=== PATIENT | male | born 1955 | race Caucasian/White ===

== ENCOUNTER 2018-12-20 22:13 | Outpatient (CLI) | payer MEDICARE | END 2018-12-20 22:14 | disposition critical access hospital (66) | LOC: EMS 22:13 | PROVIDERS: ATTEND Surgery | DX: M79.651 Pain in right thigh (principal); S01.81XA Laceration without foreign body of other part of head, initial encounter; W01.0XXA Fall on same level from slipping, tripping and stumbling without subsequent striking against object, initial encounter; Y92.89 Other specified places as the place of occurrence of the external cause | CPT/HCPCS: A0425; A0429 ==

== ENCOUNTER 2018-12-20 22:43 | Inpatient (IN) | payer MEDICARE, OTHER ==
--- NOTE | 2018-12-20 23:26 | ED Physician Documentation ---
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 No: Weakness, Numbness, Tingling Contributing factors: No: Anticoagulated, Prior ortho surgery, Prosthetic joint, Work related Similar symptoms before: Has not had sx before Recently seen: Not recently seen - Additional information Additional information: patient was in wooded area earlier today when he tripped and fell. He had sudden onset right thigh pain and deformity. He also struck his head and sustained a facial laceration but denies LOC. He was alone and without means of communication (such as cell phone). He applied traction to his right leg until the thigh was straight (he describes "crunching" sound and sensation with this), and then crawled back to his vehicle and called 911. He says it took 2-3 hours to crawl back to his vehicle. Review of Systems Constitutional: reports: Reviewed and negative Eyes: reports: Reviewed and negative Ears: reports: Reviewed and negative Nose: reports: Reviewed and negative Throat: reports: Reviewed and negative Cardiac: reports: Reviewed and negative Respiratory: reports: Reviewed and negative GI: reports: Reviewed and negative : denies: Incontinent Skin: reports: Laceration (s) (left eyebrow) Musculoskeletal: reports: Extremity pain, Extremity swelling. denies: Neck pain, Back pain Neurologic: reports: Head injury. denies: Generalized weakness, Focal weakness, Numbness, Confused, Altered mental status, Headache, LOC PD PAST MEDICAL HISTORY - Past Medical History Past Medical History: No - Past Surgical History Past Surgical History: No - Present Medications Home Medications: Ambulatory Orders Medication Instructions Recorded Confirmed No Known Home Medications 12/21/18 12/21/18 - Allergies Allergies/Adverse Reactions: Allergies Allergy/AdvReac Type Severity Reaction Status Date / Time No Known Drug Allergies Allergy Verified 12/20/18 22:51 - Social History Does the pt smoke?: No Smoking Status: Never smoker Does the pt drink ETOH?: No Does the pt have substance abuse?: No - Immunizations Immunizations are current?: Yes - POLST Patient has POLST: No PD ED PE NORMAL - Vitals Vital signs reviewed: Yes - General General: Alert and oriented X 3, No acute distress (NAD at rest but obvious painful distress with any movement of RLE or palpation of right thigh), Well developed/nourished - HEENT HEENT: PERRL, EOMI, Moist mucous membranes - Neck Neck: Supple, no meningeal sign, No bony TTP - Cardiac Cardiac: RRR, No murmur, No gallop, No rub - Respiratory Respiratory: No respiratory distress, Clear bilaterally - Abdomen Abdomen: Soft, Non tender - Back Back: No spinal TTP - Derm Derm: Normal color, Warm and dry - Neuro Neuro: Alert and oriented X 3, tube balancer 2-12 intact, No motor deficit, No sensory deficit, Normal speech Eye Opening: Spontaneous Motor: Obeys Commands Verbal: Oriented GCS Score: 15 PD ED PE EXPANDED - HEENT HEENT Visual: 1 - laceration (stellate laceration, total length 2.5 cm. no bony tenderness) - Extremities Extremities: Tenderness, Limited ROM, Swelling, Right thigh, Pedal Pulses Present, Sensory intact, Vascular intact Results - Vitals Vitals: Vital Signs - 24 hr 12/20/18 12/21/18 22:51 00:44 Temperature 36.6 C Heart Rate 74 86 Respiratory 16 18 Rate Blood Pressure 157/91 H 128/94 H O2 Saturation 99 97 Oxygen O2 Source Room air - Labs Labs: Laboratory Tests 12/20/18 12/20/18 23:50 23:50 WBC 15.0 H RBC 4.82 Hgb 15.4 Hct 45.3 MCV 94.0 MCH 32.0 H MCHC 34.0 RDW 13.0 Plt Count 232 MPV 9.6 Neut # (Auto) 12.7 H Lymph # (Auto) 0.7 L Traverse # (Auto) 1.4 H Eos # (Auto) 0.1 Baso # (Auto) 0.1 Absolute Nucleated RBC 0.00 Nucleated RBC % 0.0 Sodium 142 Potassium 3.9 Chloride 106 Carbon Dioxide 23 Anion Gap 13.0 BUN 22 H Creatinine 1.1 Estimated GFR (MDRD) 67 L Glucose 115 H Calcium 9.1 - Rads (name of study) right femur xrays Radiology: Prelim report reviewed, See rad report Procedures - Laceration (location) Face left Length in cm: 2.5 Wound type: Stellate Neurovascular status: Sensory intact, Motor intact, Vascular intact Anesthesia: Lidocaine 1% Wound Preparation: Chlorhexadine, Irrigated copiously NS, Wound explored, To the base, FB identified (small particulate matter encountered and removed from wound) Skin layer closure: Nylon, Interrupted, Size #-0 - enter number (5-0) Other: Patient tolerated well, No complications, Neurovascular intact, Tetanus UTD Complexity: Simple PD MEDICAL DECISION MAKING - ED course Complexity details: reviewed results, re-evaluated patient, considered differential, d/w patient ED course: D/W Dr. Dillon, recommends admit to hospitalist service and orthopedic surgery can be consulted and evaluate patient in AM Departure - Departure Disposition: [facility] DC/Xfer Clinical Impression: Laceration Right femoral fracture Qualifiers: Encounter type: initial encounter Femur location: shaft Fracture type: closed Fracture morphology: comminuted Condition: Stable Discharge Date/Time: 12/21/18 02:35
[2018-12-20] MEDS ORDERED: HYDROmorphone 1 MG/ML CARPUJECT IVP STA (23:46)
[2018-12-21] MEDS ORDERED: LIDOCAINE 1% 2 ML VIAL SUBQ STA (00:21)
[2018-12-21 00:39] LABS: BASOPHILS # (AUTO) 0.1 10^3/uL (0.0-0.1); BASOPHILS % (AUTO) 0.3 %; EOSINOPHILS # (AUTO) 0.1 10^3/uL (0.0-0.7); EOSINOPHILS % (AUTO) 0.5 %; HGB - HEMOGLOBIN 15.4 g/dL (14.0-18.0); LYMPHOCYTES # (AUTO) 0.7 10^3/uL (1.5-3.5); LYMPHOCYTES % (AUTO) 4.9 %; MEAN PLATELET VOLUME 9.6 fL (7.4-11.4); MONOCYTES # (AUTO) 1.4 10^3/uL (0.0-1.0); MONOCYTES % (AUTO) 9.3 %; NEUTROPHILS # (AUTO) 12.7 10^3/uL (1.5-6.6); NEUTROPHILS % (AUTO) 84.6 %; PLT - PLATELET COUNT 232 10^3/uL (130-450); RED BLOOD COUNT 4.82 10^6/uL (4.70-6.10)
--- NOTE | 2018-12-21 00:44 | XRAY Report ---
Reason: fall, tenderness and pain of right thigh Procedure Date: 12/21/2018 Accession Number: [id number] / [id number] Procedure: XR - Femur 2V RT CPT Code: FULL RESULT: EXAM: RIGHT FEMUR RADIOGRAPHY EXAM DATE: 12/21/2018 12:36 AM. CLINICAL HISTORY: Fall, tenderness and pain of right thigh. COMPARISON: None. TECHNIQUE: 2 views. FINDINGS: Bones: Comminuted, foreshortened right proximal femoral shaft fracture, involving the lesser trochanter. Joints: Mild osteoarthritis. Soft Tissues: Proximal soft tissue swelling. IMPRESSION: Comminuted, foreshortened proximal femoral shaft fracture, involving the lesser trochanter. RADIA
[2018-12-21 00:52] LABS: CALCIUM 9.1 mg/dL (8.5-10.3); CREATININE 1.1 mg/dL (0.6-1.2)
[2018-12-21] MEDS ORDERED: HYDROmorphone 1 MG/ML CARPUJECT IVP PRN (01:23)
--- NOTE | 2018-12-21 01:55 | HISTORY & PHYSICAL EXAMINATION ---
Chief Complaint - Chief Complaint Chief Complaint: Right leg pain after fall History of Present Illness - Admitted From Admitted From:: Home - History Obtained From Records Reviewed: Yes History obtained from: Patient, ER Physician - History of Present Illness HPI Comment/Other: This is a 63 year old male with no significant past medical history who presents to the ER for right leg pain after a fall. [place] the [place] around 5pm when he began climbing. He then fell off from about 10 feet and landed on his back. He was carrying an axe and was worried it might hit him so while he was falling, his biggest concern was to get rid of the axe. He ended up scraping his head above his right eye. He attempted to get up but noticed that he had a significant amount of right leg pain near his up. He thought it may have been a muscle strain. He was outside of cell phone service and was a quarter mile away from his car so he had to drag himself on the ground to get out of the [place] so he has a few scraps over his arms and legs. He reports no headache, vision changes, chest pain, dyspnea, or numbness of the lower extremities. He just co mplains of right leg pain with movement. He reports that he is normally very active. He has no history of diabetes, CAD, CHF. He has no chest pain or dyspnea with activity. In the ER, he was found to have a comminuted proximal femoral shaft fracture involving the less trochanter. Ortho was contacted by the ER physician recommended admission for intervention. I did speak with the patient regarding code status and he would like to be a full code. History - Past Medical History Cardiovascular: reports: None Respiratory: reports: None Musculoskeletal: reports: None MRSA Hx?: No - Past Surgical History General: reports: Other (Jaw surgery as a child) - Family & Social History Family History Comment/Other: His father had multiple cardiac problems that he cannot recall. 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 He does not smoke. Rarely drinks alcohol. - Substance History Use: Uses substance without health or social issues: NONE - POLST Patient has POLST: No Meds/Allgy - Home Medications Home Medications: Ambulatory Orders Medication Instructions Recorded Confirmed No Known Home Medications 12/21/18 12/21/18 - Allergies Allergies/Adverse Reactions: Allergies Allergy/AdvReac Type Severity Reaction Status Date / Time No Known Drug Allergies Allergy Verified 12/20/18 22:51 Review of Systems - Constitutional Constitutional: denies: Fatigue, Fever, Chills, Weakness - Eyes Eyes: denies: Blurred vision - Cardiovascular Cariovascular: denies: Chest pain, Syncope, Exertional dyspnea, Decr. exercise tolerance - Respiratory Respiratory: denies: Cough, SOB at rest, SOB with exertion - Gastrointestinal Gastrointestinal: reports: Bloating. denies: Abdominal pain, Nausea, Vomiting - Genitourinary Genitourinary: denies: Dysuria, Frequency - Musculoskeletal Musculoskeletal: reports: Limited range of motion. denies: Muscle pain, Muscle weakness - Integumentary Integumentary: reports: Lesions. denies: Rash - Neurological Neurological: reports: Focal weakness. denies: General weakness, Headache, Dizziness - All Other Systems All Other Systems: reports: Reviewed and negative Prior Level of Functionality: Independent with ADL's. Exam - Vital Signs Reviewed Vital Signs: Yes Vital Signs: Vital Signs x48h Temp Pulse Resp BP Pulse Ox 12/21/18 00:44 86 18 128/94 H 97 12/20/18 22:51 36.6 C 74 16 157/91 H 99 - Physical Exam General Appearance: positive: No acute distress, Alert Eyes Bilateral: positive: Normal inspection ENT: positive: ENT inspection nml Neck: positive: Nml inspection Respiratory: positive: No respiratory distress. negative: Wheezes, Rales, Rhonchi Cardiovascular: positive: Regular rate & rhythm, No murmur. negative: Tachy cardia, Bradycardia, Systolic murmur, Diastolic murmur Peripheral Pulses: positive: 2+ Abdomen: positive: Non-tender, No distention. negative: Tenderness, Guarding, Rebound Skin: positive: Laceration (cm) (2cm laceration just superior and medial to the left eyebrow.), Other (Small abrasions noted over his arms and legs.) Extremities: positive: No pedal edema, Other (Tenderness to palpation over the right hip. +2 DP pulses. Able to move his foot and toes.). negative: Non- tender, Full ROM Neurologic/Psychiatric: positive: Oriented x3, Sensation nml. negative: Disoriented to person, Disoriented to place, Disoriented to time, Weakness Conclusion/Plan - Problem List (1) Right femoral fracture Conclusion/Plan: Secondary to fall from approximately 10 feet. X-ray revealed right comminuted proximal femoral shaft fracture involving the lesser trochanter. Will treat his pain with IV dilaudid. NPO for likely intervention today. SCD's for DVT prophylaxis and will start Lovenox postoperatively. Orthopedics consult. PT/OT consult postoperatively. Qualifiers: Encounter type: initial encounter Femur location: shaft Fracture type: closed Fracture morphology: comminuted (2) Preop examination Conclusion/Plan: His Rosales perioperative cardiac risk score is 0.02% for a perioperative cardiac event. His functional status >4 MET's and he has no cardiac disease. His EKG is unremarkable. He is optimized for any potential intervention. (3) Leukocytosis Conclusion/Plan: Likely reactive. No symptoms of infection. No indication for antibiotics. Will trend white count. - Lab Results Lab results reviewed: Yes Fish Bones: 12/21/18 05:08 12/20/18 23:50 - Diagnostic Imaging Results Diagnostic Imaging Results: positive: Final report reviewed - EKG Results EKG Interpreted Independently: Yes EKG Findings: Sinus rhythm with no ischemic changes. Core Measures - Anticipated LOS I expect patient to be DC'd or transferred within 96 hours.: Yes - Issues Hospital Issues and Management Plan: Right femoral fracture requiring intervention. - DVT/VTE - Prophylaxis VTE/DVT Device ordered at admit?: Yes VTE/DVT Prophylaxis med ordered at admit?: Yes
[2018-12-21] MEDS: LACTATED RINGERS 1,000 ML IV SCH ×3 (03:25→21:37)
[2018-12-21] MEDS: ONDANSETRON 4 MG/2 ML VIAL IVP PRN ×2 (03:25→22:00)
[2018-12-21] MEDS: SODIUM CHLORIDE FLUSH 0.9% 10 ML SYRINGE IVP PRN ×3 (03:25→22:00)
[2018-12-21] MEDS: A & D OINTMENT 5 GM PACKET TOP PRN (05:33)
[2018-12-21 05:55] LABS: BASOPHILS % (AUTO) 0.2 %; HGB - HEMOGLOBIN 14.1 g/dL (14.0-18.0); LYMPHOCYTES # (AUTO) 0.7 10^3/uL (1.5-3.5); LYMPHOCYTES % (AUTO) 5.4 %; MEAN CORPUSCULAR HEMOGLOBIN 31.7 pg (27.0-31.0); MEAN CORPUSCULAR HGB CONC 33.5 g/dL (32.0-36.0); MEAN CORPUSCULAR VOLUME 94.6 fL (80.0-94.0); MEAN PLATELET VOLUME 9.8 fL (7.4-11.4); MONOCYTES # (AUTO) 0.9 10^3/uL (0.0-1.0); MONOCYTES % (AUTO) 6.7 %; NEUTROPHILS # (AUTO) 11.4 10^3/uL (1.5-6.6); NEUTROPHILS % (AUTO) 87.3 %; PLT - PLATELET COUNT 230 10^3/uL (130-450); RED BLOOD COUNT 4.45 10^6/uL (4.70-6.10); RED CELL DISTRIBUTION WIDTH 13.1 % (12.0-15.0); WHITE BLOOD COUNT 13.1 x10^3/uL (4.8-10.8)
[2018-12-21] MEDS: SODIUM CHLORIDE FLUSH 0.9% 10 ML SYRINGE IVP SCH ×2 (08:07→18:05)
[2018-12-21] MEDS: ACETAMINOPHEN 325 MG TABLET PO PRN (11:21)
--- NOTE | 2018-12-21 14:19 | ANESTHESIA ---
Pre-Anesthesia VS, & Labs - Diagnosis right femur fracture - Procedure right femur medullary nail placement, ORIF Vital Signs: Temp Pulse Resp BP Pulse Ox 36.7 C 94 20 127/67 98 12/21/18 11:14 12/21/18 11:14 12/21/18 11:14 12/21/18 11:14 12/21/18 11:14 Height 5 ft 11 in Weight (kg) 76 kg Body Mass Index 23.3 - NPO >8 hours - Lab Results Current Lab Results: Laboratory Tests 12/21/18 05:08: WBC 13.1 H, RBC 4.45 L, Hgb 14.1, Hct 42.1, MCV 94.6 H, MCH 31.7 H, MCHC 33.5, RDW 13.1, Plt Count 230, MPV 9.8, Neut # (Auto) 11.4 H, Lymph # (Auto) 0.7 L, Major # (Auto) 0.9, Eos # (Auto) 0.0, Baso # (Auto) 0.0, Absolute Nucleated RBC 0.00, Nucleated RBC % 0.0 12/20/18 23:50: Sodium 142, Potassium 3.9, Chloride 106, Carbon Dioxide 23, Anion Gap 13.0, BUN 22 H, Creatinine 1.1, Estimated GFR (MDRD) 67 L, Glucose 115 H, Calcium 9.1 12/20/18 23:50: WBC 15.0 H, RBC 4.82, Hgb 15.4, Hct 45.3, MCV 94.0, MCH 32.0 H, MCHC 34.0, RDW 13.0, Plt Count 232, MPV 9.6, Neut # (Auto) 12.7 H, Lymph # (Auto) 0.7 L, Major # (Auto) 1.4 H, Eos # (Auto) 0.1, Baso # (Auto) 0.1, Absolute Nucleated RBC 0.00, Nucleated RBC % 0.0 Fish Bones: 12/21/18 05:08 12/20/18 23:50 Home Medications and Allergies Home Medications: Ambulatory Orders No Known Home Medications 12/21/18 Active Medications Acetaminophen (Tylenol) 650 mg PO Q4HR PRN PRN Reason: Pain 1 to 4 Last Admin: 12/21/18 11:21 Dose: 650 mg Hydromorphone HCl (Dilaudid Inj Carp) 1 mg IVP Q2HR PRN PRN Reason: Pain 8 to 10 Last Admin: 12/21/18 03:25 Dose: 1 mg Lactated Ringer's (Lr) 1,000 mls @ 100 mls/hr IV .Q10H ZENIA Last Admin: 12/21/18 12:47 Dose: 100 mls/hr Ondansetron HCl (Zofran Inj) 4 mg IVP Q6HR PRN PRN Reason: Nausea / Vomiting Last Admin: 12/21/18 03:25 Dose: 4 mg Sodium Chloride (Normal Saline Flush 0.9%) 10 ml IVP PRN PRN PRN Reason: NEEDED PER PROVIDER ORDERS Last Admin: 12/21/18 03:25 Dose: 10 ml Sodium Chloride (Normal Saline Flush 0.9%) 10 ml IVP 0100,0900,1700 ZENIA Last Admin: 12/21/18 08:07 Dose: Not Given Vitamin A/Vitamin D (Vitamin A & D Ointment) 1 applic TOP PRN PRN PRN Reason: Skin Care Last Admin: 12/21/18 05:33 Dose: 1 applic No Known Home Medications 12/21/18 Allergies/Adverse Reactions: Allergies Allergy/AdvReac Type Severity Reaction Status Date / Time No Known Drug Allergies Allergy Verified 12/20/18 22:51 Anes History & Medical History - Anesthetic History Anesthesia Complications: reports: No previous complications - Medical History Cardiovascular: reports: None Pulmonary: reports: None Gastrointestinal: reports: GERD (controlled with diet) Urinary: reports: Nocturia, Frequency Neuro: reports: None Musculoskeletal: reports: None Endocrine/Autoimmune: reports: None Blood Disorders: reports: None Skin: reports: None Smoking Status: Never smoker Psychosocial: reports: No issues indicated Other Past Medical History: SHOULDER PAIN - Surgical History General: Other (Jaw surgery as a child) Eyes Ears Nose Throat (EENT): Rhinoplasty Results - EKG Results EKG Comparison: Reviewed EKG Exam General: Alert, Oriented x3, Cooperative Dental: Poor dentition Mouth Openin Fingerbreadth (limited mouth opening) Neck Mobility: Normal Mallampati classification: III Thyromental Distance: 4-6 cm Respiratory: Lungs clear, Normal breath sounds, No respiratory distress, No accessory muscle use Cardiovascular: Regular rate, Normal S1, Normal S2, No murmurs Mental/Cognitive Status: Alert/Oriented X3, Normal for patient Plan Anesthesia Type: General, Spinal (general vs spinal) Consent for Procedure(s) Verified and Reviewed: Yes Code Status: Attempt Resuscitation ASA classification: 2-Mild systemic disease Is this case an emergency?: No
[2018-12-21] MEDS ORDERED: BUPIVACAINE 0.5%-EPI 1:200000 PF 30 ML VIAL ONE (15:54)
[2018-12-21] MEDS ORDERED: KETAMINE 500 MG/10 ML VIAL IVP ONE (15:55)
[2018-12-21] MEDS ORDERED: PROPOFOL 1000 MG/100 ML 100 ML IV ONE (15:55)
[2018-12-21] MEDS ORDERED: fentaNYL 100 MCG/2 ML VIAL IVP ONE (15:55)
[2018-12-21] MEDS ORDERED: LABETALOL 5 MG/1 ML 20 ML MDV IVP ONE (15:55)
[2018-12-21] MEDS ORDERED: MIDAZOLAM 2 MG/2 ML VIAL IVP ONE (15:55)
--- NOTE | 2018-12-21 16:06 | CONSULTATION NOTE ---
Referring Provider Name of Referring Provider:: Romina Brower MD Consult Date: 12/21/18 (December 21 11:29 AM consult requested) Chief Complaint - Chief Complaint Chief Complaint: Asked to evaluate patient for right femur fracture History of Present Illness - History Obtained From History obtained from: Electronic medical record, hospitalist, patient - History of Present Illness HPI Comment/Other: Jeffrey is a 63-year-old gentleman in his usual state of health until late yesterday 12/20/2018 when he reportedly was [place] simply [place] and fell injuring his right femur. He reportedly was brought in by ambulance and found to have a femur fracture. Patient was seen by the emergency medicine physician and ultimately the hospitalist team. Orthopedist on-call was contacted though did not see patient though reportedly advised admitting team to re-consult orthopedics when patient formally medically "cleared.". Orthopedist on-call the subsequent day (today 12/21/2018) was then contacted aat 11:29 a.m. for orthopedic consultation. Patient describes being quite active with hiking, mountain biking, skateboarding, backwards fishing and windsurfing. 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 With regards to his right lower extremity he describes some upper thigh and ri ght hip pain. He denies significant other traumatic complaints at this time History - Past Medical History Cardiovascular: reports: None Respiratory: reports: None Neuro: reports: None Endocrine/Autoimmune: reports: None GI: reports: GERD (controlled with diet) : reports: Nocturia, Frequency Psych: reports: None Musculoskeletal: reports: None Derm: reports: None MRSA Hx?: No Other Past Medical History: SHOULDER PAIN - Past Surgical History General: reports: Other (Jaw surgery as a child) HEENT: reports: Rhinoplasty - Family & Social History Family History Comment/Other: His father had multiple cardiac problems that he cannot recall. 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 He does not smoke. Rarely drinks alcohol. - Substance History Use: Uses substance without health or social issues: NONE - POLST Patient has POLST: No Meds/Allgy - Home Medications Home Medications: Ambulatory Orders Medication Instructions Recorded Confirmed No Known Home Medications 12/21/18 12/21/18 - Allergies Allergies/Adverse Reactions: Allergies Allergy/AdvReac Type Severity Reaction Status Date / Time No Known Drug Allergies Allergy Verified 12/20/18 22:51 Exam - Vital Signs Vital Signs: Vital Signs x48h Temp Pulse Resp BP Pulse Ox 12/21/18 15:51 36.6 C 82 20 147/84 H 98 12/21/18 11:14 36.7 C 94 20 127/67 98 - Physical Exam Comments/Other: Patient is a well-developed well-nourished 63-year-old gentleman in no acute distress she is cooperative with the exam though interjects often during conversation. Patient's right lower extremity is slightly shortened and external rotated. His thigh is soft but firm. Skin overlying the thigh and lateral hip is clear. He is able to initiate flexion extension of toes and ankle as well as with protection gentle knee flexion extension movement. He has light touch sensation grossly rle. Palpable dorsalis pedis. Conclusion/Plan - Diagnosis Diagnosis: Right subtrochanteric comminuted displaced fracture, unstable - Plan Plan: Jeffrey is a 63-year-old active gentleman with a comminuted subtrochanteric femur fracture. We discussed the nature of his fracture. He had already reportedly reviewed the x-rays. I do a diagram for him. We talked about the nature of the injury and the comminution. We talked about the natural history of this type of injury and the relevant literature and the potential short and long-term problems with this injury with and without surgery. We went into potential operative risks including but not limited to infection wound problems nerve or blood vessel injury numbness tingling weakness pain stiffness decreased range of motion decreased strength decreased function worsening of his condition failure to "cure" patient's problem iatrogenic injury bleeding blood loss blood clot blood clot embolus positioning complications anesthetic complications including but not limited to major cardiovascular neurovascular complications even . We talked about the complexity of this fracture and the potential need for additional procedures. We talked about length alignment and rotational deformity that could be residual after surgery and may need to be revised. Talked about potentially for additional procedures in the future.We talked about his high level of function with regards to activities these days and the fact that he may lose some function given the nature of his injury. We talked about the relevant anatomy, function, and lesser trochanteric displacement and function. Patient verbalized her understanding of the above his questions were answered he verbalized wish to proceed with operative treatment. Preoperative and postoperative instructions and expectations are highlighted. We will plan on surgery pending pre-anesthetic evaluation. He will notify us sooner should problems or questions arise. Proposed procedure is right femur cephalo-medullary nail placement, open reduction internal fixation. - Lab Results Lab results reviewed: Yes Fish Bones: 12/21/18 05:08 12/20/18 23:50 - Diagnostic Imaging Results Diagnostic Imaging Results Comments: Patient had right femur x-rays showing a comminuted reversibility subtrochanter ic femur fracture with displacement of the fragments including the lesser tuberosity
[2018-12-21] MEDS ORDERED: LACTATED RINGERS 1,000 ML IV ONE ×3 (17:08→20:33)
[2018-12-21] MEDS ORDERED: BUPIVACAINE 0.5%-EPI 1:200000 PF 30 ML VIAL SUBQ ONE (20:00)
--- NOTE | 2018-12-21 20:30 | IMMEDIATE POSTOPERATIVE NOTE ---
Immediate Postoperative Note - Procedure Note Procedure Date: 12/21/18 Pre-Op Diagnosis: Right comminuted subtrochanteric displaced fracture Procedure: Right femur ORIF above fracture, ceph med nail, cerclage wire Post-Op Diagnosis: Same Primary Surgeon: Mikael Senior Back End Java Developer: ashanti Anesthesia Type: Combo spinal/epidural, General LMA, Local Findings: Severely comminuted right subtrochanteric reverse obliquity displaced fracture. Unstable lesser trochanteric piece. Multiple fracture fragments of lateral wall and intertrochanteric region Complications: No complications Estimated Blood Loss (in cc): 500 Specimens and Cultures: Pathology sent Intramedullary reamings femur Plan of Care: Patient tolerated procedure well instrument and sponge counts correct patient transferred to recovery room in stable condition. Patient will be protected weightbearing toe-touch right lower extremity with ambulation assistance and assistive device as necessary Patient will be out of bed with physical therapy postoperative day 1 Patient will be on perioperative antibiotics and perioperative DVT prophylaxis with aspirin daily Patient with appropriate analgesic medications Patient will return to hospital service with continued orthopedic management
[2018-12-21] MEDS ORDERED: SODIUM CHLORIDE FLUSH 0.9% 10 ML SYRINGE IVP PRN (20:31)
[2018-12-21] MEDS ORDERED: PROCHLORPERAZINE 10 MG/2 ML VIAL IVP PRN (20:31)
[2018-12-21] MEDS ORDERED: DOCUSATE SODIUM 100 MG CAPSULE PO PRN (20:31)
[2018-12-21] MEDS ORDERED: ACETAMINOPHEN 1,000 MG/100 ML 100 ML IV PRN (20:31)
[2018-12-21] MEDS ORDERED: ONDANSETRON 4 MG/2 ML VIAL IVP PRN (20:31)
[2018-12-21] MEDS ORDERED: NALBUPHINE 10 MG/ML AMP IVP PRN (20:42)
[2018-12-21] MEDS: ceFAZolin 2 GM in SODIUM CHLORIDE 0.9% 100ML 100 ML IV SCH (21:55)
--- NOTE | 2018-12-21 22:10 | XRAY Report ---
Reason: ORIF RIGHT FEMUR Procedure Date: 12/21/2018 Accession Number: [id number] / [id number] Procedure: FL - OR C-Arm Procedure CPT Code: FULL RESULT: EXAM: FLUOROSCOPIC GUIDANCE EXAM DATE: 12/21/2018 07:55 PM. CLINICAL HISTORY: ORIF RIGHT FEMUR. COMPARISON: None. FINDINGS/ IMPRESSION: Fluoroscopic guidance provided for Dr. Youssef. Total fluoroscopy time: 2.1 minutes. Number of images: 6. RADIA
[2018-12-22] MEDS: SODIUM CHLORIDE FLUSH 0.9% 10 ML SYRINGE IVP SCH ×6 (00:14→18:18)
[2018-12-22] MEDS: ACETAMINOPHEN 325 MG TABLET PO PRN ×3 (04:35→18:19)
[2018-12-22] MEDS: ceFAZolin 2 GM in SODIUM CHLORIDE 0.9% 100ML 100 ML IV SCH (05:01)
[2018-12-22 05:17] LABS: BASOPHILS % (AUTO) 0.2 %; LYMPHOCYTES # (AUTO) 1.2 10^3/uL (1.5-3.5); LYMPHOCYTES % (AUTO) 11.2 %; MEAN CORPUSCULAR HEMOGLOBIN 31.1 pg (27.0-31.0); MEAN CORPUSCULAR HGB CONC 32.4 g/dL (32.0-36.0); MEAN PLATELET VOLUME 9.4 fL (7.4-11.4); MONOCYTES # (AUTO) 1.2 10^3/uL (0.0-1.0); MONOCYTES % (AUTO) 11.2 %; NEUTROPHILS # (AUTO) 8.1 10^3/uL (1.5-6.6); PLT - PLATELET COUNT 188 10^3/uL (130-450); RED BLOOD COUNT 3.22 10^6/uL (4.70-6.10); RED CELL DISTRIBUTION WIDTH 13.5 % (12.0-15.0); WHITE BLOOD COUNT 10.5 x10^3/uL (4.8-10.8)
[2018-12-22 05:33] LABS: ALBUMIN 3.1 g/dL (3.2-5.5); ALBUMIN/GLOBULIN RATIO 1.6 (1.0-2.2); BILIRUBIN,TOTAL 1.6 mg/dL (0.2-1.0); CALCIUM 7.8 mg/dL (8.5-10.3); TOTAL PROTEIN 5.1 g/dL (6.7-8.2)
[2018-12-22] MEDS: LACTATED RINGERS 1,000 ML IV SCH (07:57)
[2018-12-22] MEDS: ASPIRIN 325 MG TABLET PO SCH ×2 (07:57→17:08)
[2018-12-22] MEDS ORDERED: LACTATED RINGERS 1,000 ML IV SCH (08:10)
--- NOTE | 2018-12-22 08:16 | PROVIDER PROGRESS NOTE ---
Assessment/Plan - Problem List (1) Right femoral fracture Qualifiers: Encounter type: subsequent encounter Femur location: shaft Fracture type: closed Fracture morphology: comminuted Assessment/Plan: Patient had ORIF yesterday evening, was back from OR at nearly 10 pm. He had 500 cc EBL. POD #1 is today. Start PT today, Pain meds prn: Tylenol was ordered for pain and Nubain for itching, not for pain. Will add iv Toradol prn pain. Will taper off the iv fluids, if he is eating and drinking well. (2) Anemia Assessment/Plan: The Hgb dropped from 14 to 10 today, presumably from hemodiulution (iv at 100 cc/hr) and blood loss of 500 cc intra-op, and patient did have a blood soaked bandage. Monitor CBC daily. Transfuse if Hgb < 7, or of any unstable sx. Start po Iron replacement. Continue laxatives while on Iron. (3) Elevated LFTs Assessment/Plan: There was no pre-op CMP to compare with today's LFTs. There were also no old labs done here. The elevated bili may be a phase reactant. The elevated ALT/AST ratio is concerning for alcohol abuse, along with a slightly elevated MCV. But the patient reported that he only drank occasionally on the admission H&P. Will monitor LFTs daily. If needed, will image abd/pelvis with CT. If needed, will start a CIWA protocol. - Current Meds Current Meds: Current Medications Generic Name Dose Route Start Last Admin Trade Name Freq PRN Reason Stop Dose Admin Aspirin 325 mg 12/22/18 08:00 12/22/18 07:57 Cr PO 325 mg BIDWM ZENIA Administration Hydromorphone HCl 1 mg 12/21/18 01:23 12/21/18 03:25 Dilaudid Inj Carp IVP 1 mg Q2HR PRN Administration Pain 8 to 10 Sodium Chloride 10 ml 12/21/18 01:23 12/21/18 22:00 Normal Saline Flush 0.9% IVP 10 ml PRN PRN Administration NEEDED PER PROVIDER ORDERS Sodium Chloride 10 ml 12/21/18 09:00 12/22/18 07:42 Normal Saline Flush 0.9% IVP Not Given 0100,0900,1700 ZENIA Sodium Chloride 10 ml 12/22/18 01:00 12/22/18 07:57 Normal Saline Flush 0.9% IVP 10 ml 0100,0900,1700 ZENIA Administration Vitamin A/Vitamin D 1 applic 12/21/18 03:03 12/21/18 05:33 Vitamin A & D Ointment TOP 1 applic PRN PRN Administration Skin Care - Lab Result Fish Bone Diagrams: 12/22/18 05:04 12/22/18 05:04 - Additional Planning My Orders: My Active Orders 12/22/18 08:10 Lactated Ringers [Lr] 1,000 ml IV 30 mls/hr 12/22/18 09:00 Ferrous Gluconate [Fergon] 324 mg PO DAILYWM Subjective - Subjective Patient Reports: Resting Comfortably, Pain Objective Vital Signs: Vital Signs - 24 hr 12/21/18 12/21/18 12/21/18 11:14 15:51 20:26 Temperature 36.7 C 36.6 C 36.0 C L Heart Rate 75 Heart Rate [ 94 82 Brachial] Respiratory 20 20 18 Rate Blood Pressure 129/79 Blood Pressure 127/67 147/84 H [Left Brachial artery] O2 Saturation 98 98 100 12/21/18 12/21/18 12/21/18 20:30 20:35 20:40 Temperature 36.1 C L 36.5 C 36.6 C Heart Rate 79 75 81 Heart Rate [ Brachial] Respiratory 15 16 15 Rate Blood Pressure 140/93 H 125/67 129/83 H Blood Pressure [Left Brachial artery] O2 Saturation 100 100 97 12/21/18 12/21/18 12/21/18 20:55 21:00 21:15 Temperature 37.1 C 37.3 C Heart Rate 79 89 Heart Rate [ 82 Brachial] Respiratory 16 16 16 Rate Blood Pressure 106/87 H 121/82 H Blood Pressure 133/78 H [Left Brachial artery] O2 Saturation 100 100 96 12/21/18 12/21/18 12/21/18 21:45 22:45 23:35 Temperature 36.8 C 36.5 C 36.8 C Heart Rate Heart Rate [ 81 83 75 Brachial] Respiratory 16 18 16 Rate Blood Pressure Blood Pressure 107/72 133/75 H 120/75 [Left Brachial artery] O2 Saturation 100 98 100 12/22/18 12/22/18 03:05 07:31 Temperature 36.8 C 37.0 C Heart Rate Heart Rate [ 80 84 Brachial] Respiratory 16 18 Rate Blood Pressure Blood Pressure 130/77 145/82 H [Left Brachial artery] O2 Saturation 98 97 Oxygen O2 Source Room air I&O (Last 24 Hrs): Intake and Output Totals x24h 12/20/18 12/21/18 12/22/18 23:59 23:59 23:59 Intake Total 2336 1200 Output Total 975 350 Balance 1361 850 General: Alert, Oriented x3 HEENT: Mucous membr. moist/pink Neck: Supple Neuro: Non Focal Cardiovascular: Regular rate, No murmurs Respiratory: No respiratory distress Abdomen: Soft Extremities: No edema - Results Results: Laboratory Results WBC 10.5 x10^3/uL (4.8-10.8) 12/22/18 05:04 RBC 3.22 10^6/uL (4.70-6.10) L 12/22/18 05:04 Hgb 10.0 g/dL (14.0-18.0) L 12/22/18 05:04 Hct 30.9 % (42.0-52.0) L 12/22/18 05:04 MCV 96.0 fL (80.0-94.0) H 12/22/18 05:04 MCH 31.1 pg (27.0-31.0) H 12/22/18 05:04 MCHC 32.4 g/dL (32.0-36.0) 12/22/18 05:04 RDW 13.5 % (12.0-15.0) 12/22/18 05:04 Plt Count 188 10^3/uL (130-450) 12/22/18 05:04 MPV 9.4 fL (7.4-11.4) 12/22/18 05:04 Neut # (Auto) 8.1 10^3/uL (1.5-6.6) H 12/22/18 05:04 Lymph # (Auto) 1.2 10^3/uL (1.5-3.5) L 12/22/18 05:04 Graham # (Auto) 1.2 10^3/uL (0.0-1.0) H 12/22/18 05:04 Eos # (Auto) 0.0 10^3/uL (0.0-0.7) 12/22/18 05:04 Baso # (Auto) 0.0 10^3/uL (0.0-0.1) 12/22/18 05:04 Absolute Nucleated RBC 0.00 x10^3/uL 12/22/18 05:04 Nucleated RBC % 0.0 /100WBC 12/22/18 05:04 Sodium 138 mmol/L (135-145) 12/22/18 05:04 Potassium 4.0 mmol/L (3.5-5.0) 12/22/18 05:04 Chloride 106 mmol/L (101-111) 12/22/18 05:04 Carbon Dioxide 25 mmol/L (21-32) 12/22/18 05:04 Anion Gap 7.0 (6-13) 12/22/18 05:04 BUN 27 mg/dL (6-20) H 12/22/18 05:04 Creatinine 1.0 mg/dL (0.6-1.2) 12/22/18 05:04 Estimated GFR (MDRD) 75 (>89) L 12/22/18 05:04 Glucose 181 mg/dL (70-100) H 12/22/18 05:04 Calcium 7.8 mg/dL (8.5-10.3) L 12/22/18 05:04 Total Bilirubin 1.6 mg/dL (0.2-1.0) H 12/22/18 05:04 AST 89 IU/L (10-42) H 12/22/18 05:04 ALT 35 IU/L (10-60) 12/22/18 05:04 Alkaline Phosphatase 37 IU/L (42-121) L 12/22/18 05:04 Total Protein 5.1 g/dL (6.7-8.2) L 12/22/18 05:04 Albumin 3.1 g/dL (3.2-5.5) L 12/22/18 05:04 Globulin 2.0 g/dL (2.1-4.2) L 12/22/18 05:04 Albumin/Globulin Ratio 1.6 (1.0-2.2) 12/22/18 05:04 Blood Type O POSITIVE 12/21/18 15:21 Blood Type Recheck O POSITIVE 12/21/18 05:08 Antibody Screen NEGATIVE 12/21/18 15:21
[2018-12-22] MEDS: FERROUS GLUCONATE 324 MG TABLET PO SCH (09:11)
--- NOTE | 2018-12-22 09:46 | PROVIDER PROGRESS NOTE ---
Subjective - Prog Note Date Prog Note Date: 12/22/18 Prog Note Time: 07:30 - Subjective Pt reports feeling: Improved (Patient reports feeling better than expected. He says he had a few cramps but otherwise his pain is under control and reportedly is used Tylenol not narcotics for his pain) Objective - Vital Signs/Intake & Output Vital Signs: Vital Signs x48h Temp Pulse Resp BP Pulse Ox 12/22/18 07:31 37.0 C 84 18 145/82 H 97 12/22/18 03:05 36.8 C 80 16 130/77 98 Intake & Output: Intake & Output 12/19/18 12/20/18 12/21/18 12/22/18 23:59 23:59 23:59 23:59 Intake Total 2336 1965 Output Total 975 350 Balance 1361 1615 - Lab Results Fish Bones: 12/22/18 05:04 12/22/18 05:04 Other Labs: Lab Results x24hrs 12/22/18 12/22/18 12/21/18 Range/Units 05:04 05:04 15:21 WBC 10.5 (4.8-10.8) x10^3/uL RBC 3.22 L (4.70-6.10) 10^6/uL Hgb 10.0 L (14.0-18.0) g/dL Hct 30.9 L (42.0-52.0) % MCV 96.0 H (80.0-94.0) fL MCH 31.1 H (27.0-31.0) pg MCHC 32.4 (32.0-36.0) g/dL RDW 13.5 (12.0-15.0) % Plt Count 188 (130-450) 10^3/uL MPV 9.4 (7.4-11.4) fL Neut # (Auto) 8.1 H (1.5-6.6) 10^3/uL Lymph # (Auto) 1.2 L (1.5-3.5) 10^3/uL Graham # (Auto) 1.2 H (0.0-1.0) 10^3/uL Eos # (Auto) 0.0 (0.0-0.7) 10^3/uL Baso # (Auto) 0.0 (0.0-0.1) 10^3/uL Absolute Nucleated RBC 0.00 x10^3/uL Nucleated RBC % 0.0 /100WBC Sodium 138 (135-145) mmol/L Potassium 4.0 (3.5-5.0) mmol/L Chloride 106 (101-111) mmol/L Carbon Dioxide 25 (21-32) mmol/L Anion Gap 7.0 (6-13) BUN 27 H (6-20) mg/dL Creatinine 1.0 (0.6-1.2) mg/dL Estimated GFR (MDRD) 75 L (>89) Glucose 181 H (70-100) mg/dL Calcium 7.8 L (8.5-10.3) mg/dL Total Bilirubin 1.6 H (0.2-1.0) mg/dL AST 89 H (10-42) IU/L ALT 35 (10-60) IU/L Alkaline Phosphatase 37 L (42-121) IU/L Total Protein 5.1 L (6.7-8.2) g/dL Albumin 3.1 L (3.2-5.5) g/dL Globulin 2.0 L (2.1-4.2) g/dL Albumin/Globulin Ratio 1.6 (1.0-2.2) Blood Type O POSITIVE Blood Type Recheck Antibody Screen NEGATIVE 12/21/18 Range/Units 05:08 WBC (4.8-10.8) x10^3/uL RBC (4.70-6.10) 10^6/uL Hgb (14.0-18.0) g/dL Hct (42.0-52.0) % MCV (80.0-94.0) fL MCH (27.0-31.0) pg MCHC (32.0-36.0) g/dL RDW (12.0-15.0) % Plt Count (130-450) 10^3/uL MPV (7.4-11.4) fL Neut # (Auto) (1.5-6.6) 10^3/uL Lymph # (Auto) (1.5-3.5) 10^3/uL Graham # (Auto) (0.0-1.0) 10^3/uL Eos # (Auto) (0.0-0.7) 10^3/uL Baso # (Auto) (0.0-0.1) 10^3/uL Absolute Nucleated RBC x10^3/uL Nucleated RBC % /100WBC Sodium (135-145) mmol/L Potassium (3.5-5.0) mmol/L Chloride (101-111) mmol/L Carbon Dioxide (21-32) mmol/L Anion Gap (6-13) BUN (6-20) mg/dL Creatinine (0.6-1.2) mg/dL Estimated GFR (MDRD) (>89) Glucose (70-100) mg/dL Calcium (8.5-10.3) mg/dL Total Bilirubin (0.2-1.0) mg/dL AST (10-42) IU/L ALT (10-60) IU/L Alkaline Phosphatase (42-121) IU/L Total Protein (6.7-8.2) g/dL Albumin (3.2-5.5) g/dL Globulin (2.1-4.2) g/dL Albumin/Globulin Ratio (1.0-2.2) Blood Type Blood Type Recheck O POSITIVE Antibody Screen - Other Results/Comments Other Results/Comments: Patient's right hip and knee dressings show 4 x 4 over the silver dressing proximally this is elevated to reveal bloodstained silver dressing though no evidence of leaking blood or active bleeding this involves approximately 1/2-2/3 of the silver dressing. There is no evidence of violation of the Bioclusive nature. Knee Brayan wrap and dressing clean dry intact surrounding skin without significant erythema. Thigh and calf soft. Patient is able to initiate flexion extension toes and ankle. Foot pumps in place.Patient gently moves right lower extremity denies significant pain. Assessment/Plan - Problem List (1) Right femoral fracture Impression: Patient orthopedically stable postoperative day #1 status post right femur open reduction internal fixation cephalo-medullary nail placement and cerclage wire placement for comminuted displaced subtrochanteric femur fracture. No signs or symptoms of infection or DVT noted today. Appreciate lab values will defer to medicine for input and treatment. Recommend continued plan for physical therapy, out of bed with assistance and assistive device. Toe-touch weightbearing right lower extremity Discussed the above with the patient rationale for the above approach reviewed he will continue DVT prophylaxis mechanical and chemical. Analgesics as necessary. His questions were answered to verbalize agreement satisfaction the plan as outlined. Surgery as discussed in detail with him. The comminuted nature of his fracture and intraoperative decision making and fracture position and hardware position discussed with him. The severity of the comminution and the implications of shea t and the potential short and long-term problems again discussed with patient at bedside today. Qualifiers: Encounter type: subsequent encounter Femur location: shaft Fracture type: closed Fracture morphology: comminuted
[2018-12-22] MEDS: KETOROLAC 30 MG/ML VIAL IVP PRN (13:11)
[2018-12-23] MEDS: ACETAMINOPHEN 325 MG TABLET PO PRN ×5 (00:34→20:29)
[2018-12-23] MEDS: SODIUM CHLORIDE FLUSH 0.9% 10 ML SYRINGE IVP SCH ×6 (00:35→16:24)
[2018-12-23] MEDS: A & D OINTMENT 5 GM PACKET TOP PRN (00:35)
[2018-12-23] MEDS: KETOROLAC 30 MG/ML VIAL IVP PRN ×4 (00:35→20:29)
[2018-12-23] MEDS: POLYETHYLENE GLYCOL 3350 17 GM PACKET PO SCH ×2 (07:59→14:07)
[2018-12-23] MEDS: ASPIRIN 325 MG TABLET PO SCH ×2 (08:00→16:24)
[2018-12-23] MEDS: FERROUS GLUCONATE 324 MG TABLET PO SCH (08:00)
--- NOTE | 2018-12-23 09:13 | PROVIDER PROGRESS NOTE ---
Assessment/Plan - Problem List (1) Right femoral fracture Qualifiers: Encounter type: subsequent encounter Femur location: shaft Fracture type: closed Fracture morphology: comminuted Assessment/Plan: He is POD #2 today. He rates his pain at 4-7/10 He did require stronger pain meds than Tylenol, for starting PT yesterday. Toradol was ordered iv. He states to me today that he wants to try not to use narcotics, unless he really needs them because of N/V after Oxycodone. Continue PT today which will help determine if he needs to be eventually DCh to a SNF or to home. (2) Anemia Assessment/Plan: Blood loss anemia is suspected, with 500 cc EBL from the orthopedic surgery (I discussed this today with Dr Marina and conformed that amount). Iron replacement started. (3) Elevated LFTs Assessment/Plan: He still has elevated ALT/AST ratio. His admission H&P stated that he drinks alcohol rarely. Today he reports to me that his alcohol use is in fact negligible: he only drinks fermented barley beer. He also has no signs of alcohol withdrawal. Another possibility is a fatty liver causing elevated LFTs. When discussing his diet, he reports he drinks a yogurt smoothis plus a quart of whole milk or 2% milk daily. Will check a fasting cholesterol level. - Current Meds Current Meds: Current Medications Generic Name Dose Route Start Last Admin Trade Name Freq PRN Reason Stop Dose Admin Acetaminophen 650 - 975 mg 12/21/18 20:31 12/23/18 05:35 Tylenol PO 650 mg Q4HR PRN Administration PAIN Aspirin 325 mg 12/22/18 08:00 12/23/18 08:00 Cr PO 325 mg BIDWM ZENIA Administration Ferrous Gluconate 324 mg 12/22/18 09:00 12/23/18 08:00 Fergon PO 324 mg DAILYWM ZENIA Administration Hydromorphone HCl 1 mg 12/21/18 01:23 12/21/18 03:25 Dilaudid Inj Carp IVP 1 mg Q2HR PRN Administration Pain 8 to 10 Ketorolac Tromethamine 30 mg 12/22/18 11:59 12/23/18 08:00 Toradol Inj (30mg) IVP 12/27/18 11:58 30 mg Q6HR PRN Administration PAIN Polyethylene Glycol 17 gm 12/23/18 09:00 12/23/18 07:59 Miralax PO Not Given DAILY ZENIA Sodium Chloride 10 ml 12/21/18 01:23 12/21/18 22:00 Normal Saline Flush 0.9% IVP 10 ml PRN PRN Administration NEEDED PER PROVIDER ORDERS Sodium Chloride 10 ml 12/21/18 09:00 12/23/18 08:00 Normal Saline Flush 0.9% IVP 10 ml 0100,0900,1700 ZENIA Administration Sodium Chloride 10 ml 12/22/18 01:00 12/23/18 00:35 Normal Saline Flush 0.9% IVP 10 ml 0100,0900,1700 ZENIA Administration Vitamin A/Vitamin D 1 applic 12/21/18 03:03 12/23/18 00:35 Vitamin A & D Ointment TOP 1 applic PRN PRN Administration Skin Care - Lab Result Fish Bone Diagrams: 12/23/18 11:40 12/23/18 11:40 - Additional Planning My Orders: My Active Orders 12/22/18 08:35 Telemetry-Discontinue [RC] .ONCE 12/22/18 09:00 Ferrous Gluconate [Fergon] 324 mg PO DAILYWM 12/22/18 11:59 Ketorolac Inj (30Mg) [Toradol Inj (30Mg)] 30 mg IVP Q6HR PRN 12/23/18 09:00 Polyethylene Glycol 3350 [Miralax] 17 gm PO DAILY Objective Vital Signs: Vital Signs - 24 hr 12/22/18 12/22/18 12/22/18 10:55 11:00 15:31 Temperature 36.6 C 36.4 C L Heart Rate [ 87 Activity] Heart Rate [ 95 93 Brachial] Heart Rate [ 90 Sitting] Respiratory 20 18 Rate Blood Pressure 136/69 H [Activity] Blood Pressure 144/72 H [Left Brachial artery] Blood Pressure 144/80 H [Right Brachial artery] Blood Pressure 110/63 [Sitting] Blood Pressure 144/72 H [Supine] O2 Saturation 98 99 12/22/18 12/22/18 12/23/18 19:00 22:41 00:54 Temperature 37.8 C H 36.9 C 36.7 C Heart Rate [ Activity] Heart Rate [ 88 85 Brachial] Heart Rate [ Sitting] Respiratory 18 Rate Blood Pressure [Activity] Blood Pressure [Left Brachial artery] Blood Pressure 139/79 H 136/68 H [Right Brachial artery] Blood Pressure [Sitting] Blood Pressure [Supine] O2 Saturation 100 98 12/23/18 05:20 Temperature 36.8 C Heart Rate [ Activity] Heart Rate [ 78 Brachial] Heart Rate [ Sitting] Respiratory 16 Rate Blood Pressure [Activity] Blood Pressure [Left Brachial artery] Blood Pressure 128/82 H [Right Brachial artery] Blood Pressure [Sitting] Blood Pressure [Supine] O2 Saturation 100 Oxygen O2 Source Room air I&O (Last 24 Hrs): Intake and Output Totals x24h 12/21/18 12/22/18 12/23/18 23:59 23:59 23:59 Intake Total 2336 2550 700 Output Total 975 1210 250 Balance 1361 1340 450 General: Alert, Oriented x3 HEENT: Mucous membr. moist/pink Neck: Supple, No JVD Neuro: Alert, Non Focal Cardiovascular: Regular rate Respiratory: No respiratory distress Abdomen: Soft Extremities: No edema - Results Results: Laboratory Results WBC 10.5 x10^3/uL (4.8-10.8) 12/22/18 05:04 RBC 3.22 10^6/uL (4.70-6.10) L 12/22/18 05:04 Hgb 10.0 g/dL (14.0-18.0) L 12/22/18 05:04 Hct 30.9 % (42.0-52.0) L 12/22/18 05:04 MCV 96.0 fL (80.0-94.0) H 12/22/18 05:04 MCH 31.1 pg (27.0-31.0) H 12/22/18 05:04 MCHC 32.4 g/dL (32.0-36.0) 12/22/18 05:04 RDW 13.5 % (12.0-15.0) 12/22/18 05:04 Plt Count 188 10^3/uL (130-450) 12/22/18 05:04 MPV 9.4 fL (7.4-11.4) 12/22/18 05:04 Neut # (Auto) 8.1 10^3/uL (1.5-6.6) H 12/22/18 05:04 Lymph # (Auto) 1.2 10^3/uL (1.5-3.5) L 12/22/18 05:04 Addison # (Auto) 1.2 10^3/uL (0.0-1.0) H 12/22/18 05:04 Eos # (Auto) 0.0 10^3/uL (0.0-0.7) 12/22/18 05:04 Baso # (Auto) 0.0 10^3/uL (0.0-0.1) 12/22/18 05:04 Absolute Nucleated RBC 0.00 x10^3/uL 12/22/18 05:04 Nucleated RBC % 0.0 /100WBC 12/22/18 05:04 Sodium 138 mmol/L (135-145) 12/22/18 05:04 Potassium 4.0 mmol/L (3.5-5.0) 12/22/18 05:04 Chloride 106 mmol/L (101-111) 12/22/18 05:04 Carbon Dioxide 25 mmol/L (21-32) 12/22/18 05:04 Anion Gap 7.0 (6-13) 12/22/18 05:04 BUN 27 mg/dL (6-20) H 12/22/18 05:04 Creatinine 1.0 mg/dL (0.6-1.2) 12/22/18 05:04 Estimated GFR (MDRD) 75 (>89) L 12/22/18 05:04 Glucose 181 mg/dL (70-100) H 12/22/18 05:04 Calcium 7.8 mg/dL (8.5-10.3) L 12/22/18 05:04 Total Bilirubin 1.6 mg/dL (0.2-1.0) H 12/22/18 05:04 AST 89 IU/L (10-42) H 12/22/18 05:04 ALT 35 IU/L (10-60) 12/22/18 05:04 Alkaline Phosphatase 37 IU/L (42-121) L 12/22/18 05:04 Total Protein 5.1 g/dL (6.7-8.2) L 12/22/18 05:04 Albumin 3.1 g/dL (3.2-5.5) L 12/22/18 05:04 Globulin 2.0 g/dL (2.1-4.2) L 12/22/18 05:04 Albumin/Globulin Ratio 1.6 (1.0-2.2) 12/22/18 05:04 Blood Type O POSITIVE 12/21/18 15:21 Blood Type Recheck O POSITIVE 12/21/18 05:08 Antibody Screen NEGATIVE 12/21/18 15:21
--- NOTE | 2018-12-23 10:03 | OPERATIVE REPORT ---
DATE OF SERVICE: 12/21/2018 Physician: Denilson Yosusef MD SURGEON: Denilson Youssef MD PREOPERATIVE DIAGNOSIS: Right comminuted reverse obliquity subtrochanteric femur fracture, unstable. POSTOPERATIVE DIAGNOSIS: Right comminuted reverse obliquity subtrochanteric femur fracture, unstable. PROCEDURE: Right femur open reduction and internal fixation with cephalomedullary nail and cerclage wire. INTRAOPERATIVE COMPLICATIONS: None noted. ESTIMATED BLOOD LOSS: 500 mL FLUIDS: Please see nursing report. PERIOPERATIVE ANTIBIOTICS: Weight-based IV Ancef. COMPRESSION DEVICE: Contralateral left calf SCD boot. ANESTHESIA TYPE: Spinal and general as well as 20 mL 0.5% Marcaine with epinephrine local. ORTHOPEDIC IMPLANTS: [employer] TRIGEN INTERTAN nail, 100 mm lag screw, as well as 95 mm compression screw, as well as 5 x 42.5 mm screw, as well as a 125 degree right 10 x 40 cm nail, as well as additional 2 mm cable with clamp [employer]. HISTORY OF PRESENT ILLNESS AND INDICATIONS: Patient is a 63-year-old gentleman who reportedly was in the [employer] late on 12/20/2018. He reportedly presented to the emergency room after crawling out of the [facility] and ultimately was found to have a femur fracture. Orthopedist conveyor technician initially contacted. Operating surgeon consulted at approximately 11:30 a.m. on 12/21/2018, consultation was performed. Patient was indicated for operative treatment. Attending appropriate pre-anesthesia and medical risk stratification and optimization. Discussed at that time the injury with the patient. We talked about the severity of the injury and the comminuted nature of the fracture and the implications for that for healing in the short-term and long-term. We talked about the potential failure to heal, potential need for re-operation, potential for length, alignment or rotational abnormalities that may need to be corrected. We talked about the fact that there are multiple major fragments but likely additional comminuted fragments not appreciated on the plain films. We talked about lesser trochanter and the function of that and the potential symptoms that the patient may have ongoing which may include, but not be limited to pain, weakness, stiffness in the right hip and right lower extremity. We also talked about operative risks including, but not limited to the potential for infection, bleeding, nerve or blood vessel injury, numbness, tingling, weakness, pain, stiffness, decreased range of motion, decreased strength, decreased function, worsening of his condition, decreased ambulatory or other functional debility, worsening of his condition, iatrogenic injury, bleeding, blood loss, blood clot, blood clot embolus, positioning complications, anesthetic complications including, but not limited to major cardiovascular and neurovascular complications, even . Diagram was drawn. Patient's questions were answered, he verbalized understanding of the above, and verbalized wish to proceed with operative treatment. Informed consent was given. INTRAOPERATIVE FINDINGS: Patient noted to have a comminuted subtrochanteric femur fracture. The amount of fracture fragments noted to be significantly greater than easily identified on the plain films. There is a major lateral wall fragment heading up towards the proximal greater trochanter though the greater trochanter does by palpation appear to remain attached to the neck and head portion. There is additional comminution at the reverse obliquity level. Ultimately, the neck shaft angle is improved to within anatomic range with good apposition of the bone. Cerclage wire further compresses at the fracture site the lateral wall fragment. Of note, additional operative findings include that even with appropriate reaming 2 mm over that seating of the implant further distally was not possible, without losing a very difficult reduction. As such, given the quality of the bone proximally and the head and neck, the head screws are placed somewhat proximally and anteriorly in the interest of recognizing the paramount importance of fracture reduction and bony contact. It was felt that this provided adequate fixation of the proximal fragment without any expected migration there. Post fixation, the patient's length, alignment and rotation is noted to be within 5 mm of length and 5 degrees of rotation by inspection. Additional operative finding was that the patient had good quality bone. No abnormality appreciated with the reamings or the reaming process though pathologic specimen sent in the event that this was an unrecognized pathologic fracture. PROCEDURE: On 12/21/2018, patient identified his right hip as the injury site and operative site; this is signed. Patient is brought to the operating room. Spinal anesthesia is administered. He was sedated and ultimately received general anesthesia, the patient is placed carefully on the fracture table. Head, neck, and extremities are placed in anatomically comfortable and safe positions to avoid peripheral nerve stretch and compression. Patient's left lower extremity is placed in a maximal safe zone of abduction, internal rotation, and hip flexion on a gel-padded leg rest with an SCD boot in place. Patient's right lower extremity has a padded foot rest with Sof-Rol and ultimately Coban placed and a reduction maneuver is performed with a combination of traction and a combination of abduction, adduction. Fluoroscopic image confirms improved bony position. At this point, patient's right hip and right thigh are cleaned with Hibiclens and then alcohol, and then prepped and draped with ChloraPrep in the usual sterile fashion. Shower curtain is used. At this point, attention is directed towards fracture reduction. Initially, an attempt with manipulation under fluoroscopic guidance is attempted, though it is clear that the deforming forces of the major fracture fragments would not allow this. As such, an incision is made at the level of the fracture site laterally through skin, spreading dissection, carried down to the IT band, which is divided, and then direct approach to the fracture site is performed. Care is taken to stay directly on bone and to avoid exuberant penetration medially to avoid iatrogenic injury to the significant neurovascular structures. Furthermore, in part, this causes no further attempt to reduce the lesser trochanter with the potential morbidity and risks without demonstrated significant benefit. At this point, multiple attempts with fracture reduction tools gets some of the fracture fragments with improved position, though the incision needed to be extended more proximally to capture the proximal aspect. Unfortunately, at this point, the reduction is not adequate, and the proximal incision is made such that a small entry point made at the appropriate point on the greater trochanter. At this point, this is used to push the proximal fragment into more adduction, thereby aiding in the reduction. At this point, clamps are used to hold the fracture reduction in a maximally reduced position while recognizing the multiple comminuted pieces. At this point, the entry point is completed in appropriate position, and then a long guidewire is placed through the proximal section down through the shaft section while the fracture is maintained in a maximally reduced position. At this point, sequential reaming up to a size [address] distally, though not across the fracture site, to avoid any eccentric reaming there. At this point, once final 12 mm reamer is performed, the entry reamer is seated to an appropriate depth, so that the nail would seat appropriately. At this point, after the nail length had been selected, a nail is placed into the intramedullary space, first with the handle to the pato, then rotating so that the bow matched up with the femur, and this is impacted into place. This is impacted until it appears that the nail contacts at the most proximal aspect of the shaft cortex, which may be limiting further advancement, though it was felt that given the difficulty in timing of reduction, it would not be of significant benefit to remove the nail, re-ream this area, and seat the nail further, given the potential downsides in loss of reduction. It was also felt that the patient's head and neck bone would be of adequate quality, and this is confirmed with ultimate pin placement and reaming of the screw positions. At this point, after appropriate seating and rotation of the nail, it is noted that the nail is aiming slightly anteriorly, though again, with any attempt at rotating it further posteriorly, it was felt that the fracture reduction would be lost with little advantage. Given this and the quality of bone, the head screws are reamed and then ultimately placed per standard protocol. These seat nicely and are in good quality bone with excellent purchase, capturing the proximal major fragment. At this point, it is felt that a cerclage wire would benefit, in particular the lateral piece of cortex that was separate from the remainder of the intertrochanteric region and neck. As such, directly on bone, taking care to avoid over exuberant penetration medially, a cerclage wire is placed and tightened to specifications and then clamped. The residual wire is cut. At this point, attention is directed towards the distal aspect, where perfect [place] technique is used to place a lateral to medial locking bolt through a small stab incision. This is done under fluoroscopic image. At this point, final fluoroscopic imaging is confirmed with multiple views AP and lateral throughout the length of the femur, confirming acceptable fracture reduction and hardware position as well as extraarticular hardware. At this point, copious irrigation is performed in all wounds. Hemostasis is achieved. IT band and fascial layers closed using 0 Vicryl. Repeat irrigation is performed. Skin is closed with 0 Vicryl, 2-0 Vicryl, and then ultimately with tad in the major incision, and then 0 Vicryl, 2-0 Vicryl, and tad in the most proximal incision, and tad in the most distal stab incision. Skin is washed, dried, local anesthetic is infused, silver dressing is placed proximally. Xeroform, Sof-Rol, sterile 4 x 4, and Brayan wrap placed distally. Patient tolerated the procedure well. Instrument and sponge counts are correct. Patient is transferred to recovery room in stable condition. Of note, when taken from the fracture table, the patient is noted to have approximately equal length and rotation of the right lower extremity versus the left within 5 mm and 5 degrees. Patient would be toe-touch weightbearing right lower extremity, ambulating with assistance and assistive device as needed. He would start physical therapy, continue occupational therapy. He will be on perioperative antibiotics, perioperative chemical and mechanical DVT prophylaxis, and return to the medical service with close orthopedic management. Of note, during reaming process, there was copious irrigation and capture of reamings to send for pathology and also to protect local tissues. TD: 12/23/2018 08:42 KAVITA
[2018-12-23 11:47] LABS: BASOPHILS % (AUTO) 0.2 %; EOSINOPHILS % (AUTO) 0.2 %; HGB - HEMOGLOBIN 8.5 g/dL (14.0-18.0); LYMPHOCYTES # (AUTO) 0.9 10^3/uL (1.5-3.5); LYMPHOCYTES % (AUTO) 8.7 %; MEAN CORPUSCULAR HEMOGLOBIN 32.4 pg (27.0-31.0); MEAN CORPUSCULAR HGB CONC 33.1 g/dL (32.0-36.0); MEAN CORPUSCULAR VOLUME 98.1 fL (80.0-94.0); MEAN PLATELET VOLUME 8.9 fL (7.4-11.4); MONOCYTES # (AUTO) 1.4 10^3/uL (0.0-1.0); MONOCYTES % (AUTO) 13.4 %; NEUTROPHILS % (AUTO) 76.8 %; PLT - PLATELET COUNT 141 10^3/uL (130-450); RED BLOOD COUNT 2.62 10^6/uL (4.70-6.10); RED CELL DISTRIBUTION WIDTH 13.6 % (12.0-15.0); WHITE BLOOD COUNT 10.4 x10^3/uL (4.8-10.8)
[2018-12-23 12:00] LABS: ALBUMIN 2.8 g/dL (3.2-5.5); ALBUMIN/GLOBULIN RATIO 1.1 (1.0-2.2); BILIRUBIN,TOTAL 0.9 mg/dL (0.2-1.0); CALCIUM 8.2 mg/dL (8.5-10.3); CREATININE 1.1 mg/dL (0.6-1.2); TOTAL PROTEIN 5.4 g/dL (6.7-8.2)
[2018-12-23] MEDS: SODIUM CHLORIDE FLUSH 0.9% 10 ML SYRINGE IVP PRN (13:31)
--- NOTE | 2018-12-23 15:58 | PROVIDER PROGRESS NOTE ---
Subjective - Prog Note Date Prog Note Date: 12/23/18 - Subjective Pt reports feeling: Improved (says improved and somewhat surprised he is doing as well as he is. notes progress in PT. says hip is weak. he notes that he is frustrated with insurance situation.) Objective - Vital Signs/Intake & Output Vital Signs: Vital Signs x48h Temp Pulse Pulse Pulse Pulse Resp BP 12/23/18 13:00 36.5 C 89 18 12/23/18 11:45 87 90 86 136/69 H 12/23/18 09:24 36.3 C L 88 18 BP BP BP Pulse Ox Pulse Ox 12/23/18 13:00 149/75 H 97 12/23/18 11:45 110/63 130/83 H 99 12/23/18 09:24 126/66 98 Intake & Output: Intake & Output 12/20/18 12/21/18 12/22/18 12/23/18 23:59 23:59 23:59 23:59 Intake Total 2336 2550 2720 Output Total 975 1210 475 Balance 1361 1340 2245 - Lab Results Fish Bones: 12/23/18 11:40 12/23/18 11:40 Other Labs: Lab Results x24hrs 12/23/18 12/23/18 Range/Units 11:40 11:40 WBC 10.4 (4.8-10.8) x10^3/uL RBC 2.62 L (4.70-6.10) 10^6/uL Hgb 8.5 L (14.0-18.0) g/dL Hct 25.7 L (42.0-52.0) % MCV 98.1 H (80.0-94.0) fL MCH 32.4 H (27.0-31.0) pg MCHC 33.1 (32.0-36.0) g/dL RDW 13.6 (12.0-15.0) % Plt Count 141 (130-450) 10^3/uL MPV 8.9 (7.4-11.4) fL Neut # (Auto) 8.0 H (1.5-6.6) 10^3/uL Lymph # (Auto) 0.9 L (1.5-3.5) 10^3/uL [place] # (Auto) 1.4 H (0.0-1.0) 10^3/uL Eos # (Auto) 0.0 (0.0-0.7) 10^3/uL Baso # (Auto) 0.0 (0.0-0.1) 10^3/uL Absolute Nucleated RBC 0.00 x10^3/uL Nucleated RBC % 0.0 /100WBC Sodium 137 (135-145) mmol/L Potassium 4.3 (3.5-5.0) mmol/L Chloride 101 (101-111) mmol/L Carbon Dioxide 28 (21-32) mmol/L Anion Gap 8.0 (6-13) BUN 31 H (6-20) mg/dL Creatinine 1.1 (0.6-1.2) mg/dL Estimated GFR (MDRD) 67 L (>89) Glucose 116 H (70-100) mg/dL Calcium 8.2 L (8.5-10.3) mg/dL Total Bilirubin 0.9 (0.2-1.0) mg/dL AST 83 H (10-42) IU/L ALT 33 (10-60) IU/L Alkaline Phosphatase 36 L (42-121) IU/L Total Protein 5.4 L (6.7-8.2) g/dL Albumin 2.8 L (3.2-5.5) g/dL Globulin 2.6 (2.1-4.2) g/dL Albumin/Globulin Ratio 1.1 (1.0-2.2) - Other Results/Comments Other Results/Comments: oob in chair. flex ex toes ankle knee. right hip/knee dressings dry and intact. deep bioclusive dressing no additional drainage noted from initial. no surrounding erythema. thigh and calf soft nt. able to flex hip with assist. comfortable with minimal motion flex/ir/er. Assessment/Plan - Problem List (1) Right femoral fracture Impression: ortho improving. appreciate previous notes and labs. no cv sx though decreased h/h. cont oob with assist and assist device. PT/OT. TTWB rle. cont dvt prophylaxis mech and chemical. analgesia prn. despite frustration patient mentions (insurance, and delay in communication from admission to ortho eval) he notes that we have been on it and have taken ownership of it since then. he notes his appreciation of that. cont current plan per Hospitalist. Qualifiers: Encounter type: subsequent encounter Femur location: shaft Fracture type: closed Fracture morphology: comminuted
[2018-12-24] MEDS: KETOROLAC 30 MG/ML VIAL IVP PRN ×3 (05:22→19:23)
[2018-12-24] MEDS: SODIUM CHLORIDE FLUSH 0.9% 10 ML SYRINGE IVP SCH ×7 (05:27→19:29)
[2018-12-24 05:33] LABS: BASOPHILS % (AUTO) 0.3 %; EOSINOPHILS # (AUTO) 0.1 10^3/uL (0.0-0.7); EOSINOPHILS % (AUTO) 0.6 %; HGB - HEMOGLOBIN 8.4 g/dL (14.0-18.0); LYMPHOCYTES # (AUTO) 1.1 10^3/uL (1.5-3.5); LYMPHOCYTES % (AUTO) 11.3 %; MEAN CORPUSCULAR HEMOGLOBIN 31.2 pg (27.0-31.0); MEAN CORPUSCULAR HGB CONC 32.1 g/dL (32.0-36.0); MEAN CORPUSCULAR VOLUME 97.4 fL (80.0-94.0); MEAN PLATELET VOLUME 9.7 fL (7.4-11.4); MONOCYTES % (AUTO) 11.2 %; PLT - PLATELET COUNT 172 10^3/uL (130-450); RED BLOOD COUNT 2.69 10^6/uL (4.70-6.10); RED CELL DISTRIBUTION WIDTH 13.5 % (12.0-15.0); WHITE BLOOD COUNT 9.3 x10^3/uL (4.8-10.8)
[2018-12-24] MEDS: ACETAMINOPHEN 325 MG TABLET PO PRN ×4 (05:35→19:22)
[2018-12-24 05:54] LABS: ALBUMIN 2.9 g/dL (3.2-5.5); ALKALINE PHOSPHATASE 38 IU/L (42-121); ALT ALANINE AMINOTRANSFERASE 36 IU/L (10-60); AST ASPARTATE AMINOTRANSFERASE 82 IU/L (10-42); BILIRUBIN,TOTAL 1.1 mg/dL (0.2-1.0); BUN - BLOOD UREA NITROGEN 28 mg/dL (6-20); CALCIUM 8.1 mg/dL (8.5-10.3); CARBON DIOXIDE - CO2 27 mmol/L (21-32); CHLORIDE 103 mmol/L (101-111); CHOL/HDL RATIO 3.5 (<5.0); CHOLESTEROL 144 mg/dL; GFR - MDRD 75 (>89); GLUCOSE 115 mg/dL (70-100); HDL CHOLESTEROL 41 mg/dL; LDL CHOLESTEROL,CALCULATED 84 mg/dL; SODIUM 137 mmol/L (135-145); TOTAL PROTEIN 5.7 g/dL (6.7-8.2); VLDL CHOLESTEROL 19 mg/dL
[2018-12-24] MEDS: FERROUS GLUCONATE 324 MG TABLET PO SCH (08:20)
[2018-12-24] MEDS: ASPIRIN 325 MG TABLET PO SCH ×2 (08:21→18:47)
[2018-12-24] MEDS: POLYETHYLENE GLYCOL 3350 17 GM PACKET PO SCH (08:23)
--- NOTE | 2018-12-24 16:10 | PROVIDER PROGRESS NOTE ---
Assessment/Plan - Problem List (1) Right femoral fracture Qualifiers: Encounter type: subsequent encounter Femur location: shaft Fracture type: closed Fracture morphology: comminuted Assessment/Plan: POD #3. Tylenol alternating with Toradol is controlling pain. PT is working with him and he does agree to a SNF for further PT rehab. (2) Anemia Assessment/Plan: Blood loss anemia being treated with oral Iron replacement. (3) Elevated LFTs Assessment/Plan: Unchanged AST/ALT ratio, but bili has normalized after the initial elevated value. He denies alcohol use hardly and cholesterol was not elevated despite reporting drinking a quart of milk a day. The LFTs will need outpatient F/U. - Current Meds Current Meds: Current Medications Generic Name Dose Route Start Last Admin Trade Name Freq PRN Reason Stop Dose Admin Acetaminophen 650 - 975 mg 12/21/18 20:31 12/24/18 13:32 Tylenol PO 650 mg Q4HR PRN Administration PAIN Aspirin 325 mg 12/22/18 08:00 12/24/18 08:21 Cr PO 325 mg BIDWM ZENIA Administration Ferrous Gluconate 324 mg 12/22/18 09:00 12/24/18 08:20 Fergon PO 324 mg DAILYWM ZENIA Administration Hydromorphone HCl 1 mg 12/21/18 01:23 12/21/18 03:25 Dilaudid Inj Carp IVP 1 mg Q2HR PRN Administration Pain 8 to 10 Ketorolac Tromethamine 30 mg 12/22/18 11:59 12/24/18 11:30 Toradol Inj (30mg) IVP 12/27/18 11:58 30 mg Q6HR PRN Administration PAIN Polyethylene Glycol 17 gm 12/23/18 09:00 12/24/18 08:23 Miralax PO Not Given DAILY ZENIA Sodium Chloride 10 ml 12/21/18 01:23 12/23/18 13:31 Normal Saline Flush 0.9% IVP 10 ml PRN PRN Administration NEEDED PER PROVIDER ORDERS Sodium Chloride 10 ml 12/21/18 09:00 12/24/18 11:31 Normal Saline Flush 0.9% IVP 10 ml 0100,0900,1700 ZENIA Administration Sodium Chloride 10 ml 12/22/18 01:00 12/24/18 09:13 Normal Saline Flush 0.9% IVP Not Given 0100,0900,1700 ZENIA Sodium Chloride 10 ml 12/21/18 20:31 12/23/18 20:30 Normal Saline Flush 0.9% IVP 10 ml PRN PRN Administration NEEDED PER PROVIDER ORDERS Vitamin A/Vitamin D 1 applic 12/21/18 03:03 12/23/18 00:35 Vitamin A & D Ointment TOP 1 applic PRN PRN Administration Skin Care - Lab Result Fish Bone Diagrams: 12/25/18 06:25 12/25/18 06:25 - Additional Planning My Orders: My Active Orders 12/25/18 05:00 CBC - COMP BLD CT W/AUTO DIFF [HEME] DAILYLAB CMP [COMPREHENSIVE METABOLIC PANEL] [CHEM] DAILYLAB Subjective - Subjective Patient Reports: Resting Comfortably, No Complaints Objective Vital Signs: Vital Signs - 24 hr 12/23/18 12/24/18 23:50 08:37 Temperature 36.6 C 36.6 C Heart Rate [ 78 87 Brachial] Respiratory 16 16 Rate Blood Pressure 128/71 142/82 H [Right Brachial artery] O2 Saturation 98 98 Oxygen O2 Source Room air I&O (Last 24 Hrs): Intake and Output Totals x24h 12/22/18 12/23/18 12/24/18 23:59 23:59 23:59 Intake Total 2550 3210 600 Output Total 1210 725 300 Balance 1340 2485 300 General: Other (Sleeping) HEENT: Atraumatic, Mucous membr. moist/pink Neck: Supple Neuro: Non Focal Cardiovascular: Regular rate Respiratory: No respiratory distress Extremities: No edema - Results Results: Laboratory Results WBC 9.3 x10^3/uL (4.8-10.8) 12/24/18 05:25 RBC 2.69 10^6/uL (4.70-6.10) L 12/24/18 05:25 Hgb 8.4 g/dL (14.0-18.0) L 12/24/18 05:25 Hct 26.2 % (42.0-52.0) L 12/24/18 05:25 MCV 97.4 fL (80.0-94.0) H 12/24/18 05:25 MCH 31.2 pg (27.0-31.0) H 12/24/18 05:25 MCHC 32.1 g/dL (32.0-36.0) 12/24/18 05:25 RDW 13.5 % (12.0-15.0) 12/24/18 05:25 Plt Count 172 10^3/uL (130-450) 12/24/18 05:25 MPV 9.7 fL (7.4-11.4) 12/24/18 05:25 Neut # (Auto) 7.0 10^3/uL (1.5-6.6) H 12/24/18 05:25 Lymph # (Auto) 1.1 10^3/uL (1.5-3.5) L 12/24/18 05:25 [place] # (Auto) 1.0 10^3/uL (0.0-1.0) 12/24/18 05:25 Eos # (Auto) 0.1 10^3/uL (0.0-0.7) 12/24/18 05:25 Baso # (Auto) 0.0 10^3/uL (0.0-0.1) 12/24/18 05:25 Absolute Nucleated RBC 0.00 x10^3/uL 12/24/18 05:25 Nucleated RBC % 0.0 /100WBC 12/24/18 05:25 Sodium 137 mmol/L (135-145) 12/24/18 05:25 Potassium 4.0 mmol/L (3.5-5.0) 12/24/18 05:25 Chloride 103 mmol/L (101-111) 12/24/18 05:25 Carbon Dioxide 27 mmol/L (21-32) 12/24/18 05:25 Anion Gap 7.0 (6-13) 12/24/18 05:25 BUN 28 mg/dL (6-20) H 12/24/18 05:25 Creatinine 1.0 mg/dL (0.6-1.2) 12/24/18 05:25 Estimated GFR (MDRD) 75 (>89) L 12/24/18 05:25 Glucose 115 mg/dL (70-100) H 12/24/18 05:25 Calcium 8.1 mg/dL (8.5-10.3) L 12/24/18 05:25 Total Bilirubin 1.1 mg/dL (0.2-1.0) H 12/24/18 05:25 AST 82 IU/L (10-42) H 12/24/18 05:25 ALT 36 IU/L (10-60) 12/24/18 05:25 Alkaline Phosphatase 38 IU/L (42-121) L 12/24/18 05:25 Total Protein 5.7 g/dL (6.7-8.2) L 12/24/18 05:25 Albumin 2.9 g/dL (3.2-5.5) L 12/24/18 05:25 Globulin 2.8 g/dL (2.1-4.2) 12/24/18 05:25 Albumin/Globulin Ratio 1.0 (1.0-2.2) 12/24/18 05:25 Triglycerides 94 mg/dL (-149) 12/24/18 05:25 Cholesterol 144 mg/dL (-199) 12/24/18 05:25 LDL Cholesterol, Calc 84 mg/dL (-129) 12/24/18 05:25 VLDL Cholesterol 19 mg/dL 12/24/18 05:25 HDL Cholesterol 41 mg/dL (60-) L 12/24/18 05:25 LDL/HDL Ratio 2.0 (<3.6) 12/24/18 05:25 Cholesterol/HDL Ratio 3.5 (<5.0) 12/24/18 05:25 Blood Type O POSITIVE 12/21/18 15:21 Blood Type Recheck O POSITIVE 12/21/18 05:08 Antibody Screen NEGATIVE 12/21/18 15:21
[2018-12-24] MEDS: SODIUM CHLORIDE FLUSH 0.9% 10 ML SYRINGE IVP PRN (19:28)
--- NOTE | 2018-12-24 20:04 | PROVIDER PROGRESS NOTE ---
Subjective - Prog Note Date Prog Note Date: 12/24/18 Prog Note Time: 18:30 - Subjective Pt reports feeling: No change (says he's better in some regards and worse in others. says hip is sore but improving. says he is overall tired and has some gi upset.) Objective - Vital Signs/Intake & Output Vital Signs: Vital Signs x48h Temp Pulse Resp BP Pulse Ox 12/24/18 16:15 37.2 C 82 18 154/86 H 100 Intake & Output: Intake & Output 12/21/18 12/22/18 12/23/18 12/24/18 23:59 23:59 23:59 23:59 Intake Total 2336 2550 3210 600 Output Total 975 1210 725 300 Balance 1361 1340 2485 300 - Lab Results Fish Bones: 12/24/18 05:25 12/24/18 05:25 Other Labs: Lab Results x24hrs 12/24/18 12/24/18 Range/Units 05:25 05:25 WBC 9.3 (4.8-10.8) x10^3/uL RBC 2.69 L (4.70-6.10) 10^6/uL Hgb 8.4 L (14.0-18.0) g/dL Hct 26.2 L (42.0-52.0) % MCV 97.4 H (80.0-94.0) fL MCH 31.2 H (27.0-31.0) pg MCHC 32.1 (32.0-36.0) g/dL RDW 13.5 (12.0-15.0) % Plt Count 172 (130-450) 10^3/uL MPV 9.7 (7.4-11.4) fL Neut # (Auto) 7.0 H (1.5-6.6) 10^3/uL Lymph # (Auto) 1.1 L (1.5-3.5) 10^3/uL [place] # (Auto) 1.0 (0.0-1.0) 10^3/uL Eos # (Auto) 0.1 (0.0-0.7) 10^3/uL Baso # (Auto) 0.0 (0.0-0.1) 10^3/uL Absolute Nucleated RBC 0.00 x10^3/uL Nucleated RBC % 0.0 /100WBC Sodium 137 (135-145) mmol/L Potassium 4.0 (3.5-5.0) mmol/L Chloride 103 (101-111) mmol/L Carbon Dioxide 27 (21-32) mmol/L Anion Gap 7.0 (6-13) BUN 28 H (6-20) mg/dL Creatinine 1.0 (0.6-1.2) mg/dL Estimated GFR (MDRD) 75 L (>89) Glucose 115 H (70-100) mg/dL Calcium 8.1 L (8.5-10.3) mg/dL Total Bilirubin 1.1 H (0.2-1.0) mg/dL AST 82 H (10-42) IU/L ALT 36 (10-60) IU/L Alkaline Phosphatase 38 L (42-121) IU/L Total Protein 5.7 L (6.7-8.2) g/dL Albumin 2.9 L (3.2-5.5) g/dL Globulin 2.8 (2.1-4.2) g/dL Albumin/Globulin Ratio 1.0 (1.0-2.2) Triglycerides 94 ( - 149) mg/dL Cholesterol 144 ( - 199) mg/dL LDL Cholesterol, Calc 84 ( - 129) mg/dL VLDL Cholesterol 19 mg/dL HDL Cholesterol 41 L (60 - ) mg/dL LDL/HDL Ratio 2.0 (<3.6) Cholesterol/HDL Ratio 3.5 (<5.0) - Other Results/Comments Other Results/Comments: right lower extremity NV unchanged. able to flex ex ankle and initiate knee flex ex. able to roll on left side. right hip dressing elevated- some sang drain in dressing bout wound without notable drainage or erythema. knee wound cdi. thigh and calf soft. Assessment/Plan - Problem List (1) Right femoral fracture Impression: stable post right femur orif. appreciate Hospitalist input and mgt. no cv sx- agree cont iron replacement. cont RLE precautions. oob and amb with assist. dvt prophylaxis mech and chemical. CLEAN dressing change tonight to new silver dressings. ok for dc from ortho perspective- but will await med mgt/optimization if dc'd may follow-up ortho clinic 10-14 days post op or sooner prn. reviewed with pt. questions answered. in agreement. Qualifiers: Encounter type: subsequent encounter Femur location: shaft Fracture type: closed Fracture morphology: comminuted
[2018-12-25] MEDS: SODIUM CHLORIDE FLUSH 0.9% 10 ML SYRINGE IVP SCH ×3 (01:25→10:07)
[2018-12-25 06:47] LABS: BASOPHILS % (AUTO) 0.5 %; EOSINOPHILS # (AUTO) 0.1 10^3/uL (0.0-0.7); EOSINOPHILS % (AUTO) 1.1 %; HGB - HEMOGLOBIN 8.1 g/dL (14.0-18.0); LYMPHOCYTES # (AUTO) 0.9 10^3/uL (1.5-3.5); LYMPHOCYTES % (AUTO) 10.8 %; MEAN CORPUSCULAR HEMOGLOBIN 32.1 pg (27.0-31.0); MEAN CORPUSCULAR HGB CONC 32.5 g/dL (32.0-36.0); MEAN CORPUSCULAR VOLUME 98.8 fL (80.0-94.0); MEAN PLATELET VOLUME 9.3 fL (7.4-11.4); MONOCYTES # (AUTO) 0.8 10^3/uL (0.0-1.0); MONOCYTES % (AUTO) 10.2 %; NEUTROPHILS # (AUTO) 6.3 10^3/uL (1.5-6.6); NEUTROPHILS % (AUTO) 76.6 %; PLT - PLATELET COUNT 209 10^3/uL (130-450); RED BLOOD COUNT 2.52 10^6/uL (4.70-6.10); RED CELL DISTRIBUTION WIDTH 13.3 % (12.0-15.0); WHITE BLOOD COUNT 8.2 x10^3/uL (4.8-10.8)
[2018-12-25 06:59] LABS: ALBUMIN 2.7 g/dL (3.2-5.5); ALBUMIN/GLOBULIN RATIO 0.9 (1.0-2.2); BILIRUBIN,TOTAL 1.3 mg/dL (0.2-1.0); CALCIUM 7.9 mg/dL (8.5-10.3); TOTAL PROTEIN 5.6 g/dL (6.7-8.2)
[2018-12-25 08:33] VITALS: BP 136/67
[2018-12-25] MEDS: ASPIRIN 325 MG TABLET PO SCH (10:06)
[2018-12-25] MEDS: FERROUS GLUCONATE 324 MG TABLET PO SCH (10:06)
[2018-12-25] MEDS: POLYETHYLENE GLYCOL 3350 17 GM PACKET PO SCH (10:07)
--- NOTE | 2018-12-25 13:51 | Discharge Plan ---
Discharge Plan Problem Reviewed?: Yes Disposition: [facility] DC/Xfer Condition: Stable Prescriptions: Acetaminophen [Tylenol] 650 mg PO Q4HR PRN #60 tablet PRN Reason: Pain Aspirin [Cr] 325 mg PO BIDWM #60 tablet Ketorolac [Toradol] 10 mg PO Q6H #60 tablet Multivitamin W/Minerals [Theragran M] 1 tab PO DAILYWM #30 tablet Ondansetron Odt [Zofran Odt] 4 mg PO Q8H PRN #10 PRN Reason: Nausea / Vomiting Diet: Regular Activity Restrictions: Activity as Tolerated Shower Restrictions: No Assistance Devices: Walker Weight Bearing: Toe Touch Health Concerns: Admitted with a traumatic hip fracture, got orthopedic surgery. Plan of Treatment: Pain control, during PT rehab. Care Goals: As above. Assessment: Patient understands and agrees. No Smoking: If you smoke, Please STOP! Call for help. Follow-up with: Hakan Knight MD [Primary Care Provider] -
[2018-12-26] MEDS ORDERED: MULTIVITAMIN W/MINERALS TABLET PO SCH (08:00)
--- NOTE | 2018-12-31 12:07 | DISCHARGE SUMMARY ---
"Discharge Summary Admit Date: 12/21/18 Discharge Date: 12/25/18 Discharging Provider: Dr Reina Culver Primary Care Provider: None Code Status: Attempt Resuscitation Condition at Discharge: Stable Discharge Disposition: 03 SNF DC/Xfer Discharge Facility Name: [facility] Bed - DIAGNOSES Admission Diagnoses: 1) Right femoral fracture (2) Leukocytosis Discharge Diagnoses with Status of Each Condition: See below - HPI History of Present Illness: From the admission H&P of Dr Apollo Pitt: This is a 63 year old male with no significant past medical history who presents to the ER for right leg pain after a fall. [place] when he began climbing. He then fell off from about 10 feet and landed on his back. He was carrying an axe and was worried it might hit him so while he was falling, his biggest concern was to get rid of the axe. He ended up scraping his head above his right eye. He attempted to get up but noticed that he had a significant amount of right leg pain near his up. He thought it may have been a muscle strain. He was outside of cell phone service and was a quarter mile away from his car so he had to drag himself on the ground to get out of the [place] so he has a few scraps over his arms and legs. He reports no headache, vision changes, chest pain, dyspnea, or numbness of the lower extremities. He just complains of right leg pain with movement. He reports that he is normally very active. He has no history of diabetes, CAD, CHF. He has no chest pain or dyspnea with activity. In the ER, he was found to have a comminuted proximal femoral shaft fracture involving the lesser trochanter. Ortho was contacted by the ER physician recommended admission for intervention. I did speak with the patient regarding code status and he would like to be a full code. - CONSULTS | PROCEDURES Consultations: Dr Denilson Youssef Procedures: Right femur ORIF above fracture, ceph med nail, cerclage wire on 12/21/18 - HOSPITAL COURSE Hospital Course: (1) Right femoral fracture The patient was felt to have low surgical risk. He underwent successful surgery on 12/21/18. Post-op he required Tylenol alternating with Toradol for controlling pain. He declined any narcotics because of nausea. He did have nausea on his last day and was DCh with prn antiemetics. The WBC count normalized and was felt to be reactive. Physical Therapy began rehab with him on POD #1 and he was DCh to a SNF for further PT and OT rehab. (2) Anemia Estimated blood loss during surgery was 500 cc and the Hgb dropped from 15.4 at admission to 8.5, and was 8.1 at discharge. The anemia is being treated with oral Iron replacement. (3) Elevated LFTs His labs showed AST 80-90, normal AST and bilirubin was 1.6 at admission, then between 0.8 and 1.3. He denied hardly any alcohol use and cholesterol was not elevated, despite reporting drinking a quart of milk a day. He had no abdominal pain. The LFTs will need outpatient F/U. - ALLERGIES Allergies/Adverse Reactions: Allergies Allergy/AdvReac Type Severity Reaction Status Date / Time mushroom Allergy Respiratory Verified 12/26/18 09:06 - MEDICATIONS Home Medications: Ambulatory Orders Medication Instructions Recorded Confirmed Acetaminophen [Tylenol] 650 mg PO Q4HR PRN #60 tablet 12/25/18 12/25/18 Aspirin [Cr] 325 mg PO BIDWM #60 tablet 12/25/18 12/25/18 Ketorolac [Toradol] 10 mg PO Q6H #60 tablet 12/25/18 12/25/18 Multivitamin W/Minerals [Theragran 1 tab PO DAILYWM #30 tablet 12/25/18 12/25/18 M] Ondansetron Odt [Zofran Odt] 4 mg PO Q8H PRN #10 12/25/18 12/25/18 - PHYSICAL EXAM AT DISCHARGE General Appearance: positive: No acute distress, Alert Eyes Bilateral: positive: Normal inspection ENT: positive: ENT inspection nml Neck: positive: Nml inspection, No JVD Respiratory: positive: No respiratory distress, Breath sounds nml Cardiovascular: positive: Regular rate & rhythm, No murmur Abdomen: positive: Non-tender, No distention Skin: positive: Color nml Extremities: positive: No pedal edema Neurologic/Psychiatric: positive: Oriented x3, Other (Non-focal exam) - LABS Result Diagrams: 12/25/18 06:25 12/25/18 06:25 - DIAGNOSTIC IMAGING Diagnostic Imaging Results: Final report reviewed - FOLLOW UP Follow Up: F/U to Orthopedics in about 1 week."
== END 2018-12-25 16:48 | disposition swing bed (61) | DRG 482 ==
LOC: EDUNIT# → ED 22:43 → MS2 12-21 01:23 → UNDOADMIN 12-21 01:23 → MS3 12-23 → UNDODISIN 12-25 16:48
PROVIDERS: ADMIT Internal Medicine; ATTEND Internal Medicine
PROC: 0QS606Z Reposition Right Upper Femur with Intramedullary Internal Fixation Device, Open Approach (ICD-10-PCS; principal; 2018-12-21 16:00)
DX: S72.121A Displaced fracture of lesser trochanter of right femur, initial encounter for closed fracture (principal); S01.122A Laceration with foreign body of left eyelid and periocular area, initial encounter; W01.10XA Fall on same level from slipping, tripping and stumbling with subsequent striking against unspecified object, initial encounter; S72.21XA Displaced subtrochanteric fracture of right femur, initial encounter for closed fracture; S01.112A Laceration without foreign body of left eyelid and periocular area, initial encounter; S40.812A Abrasion of left upper arm, initial encounter; S40.811A Abrasion of right upper arm, initial encounter; S80.812A Abrasion, left lower leg, initial encounter; S80.811A Abrasion, right lower leg, initial encounter; W17.89XA Other fall from one level to another, initial encounter; Y93.H2 Activity, gardening and landscaping; Y92.821 Forest as the place of occurrence of the external cause; D50.0 Iron deficiency anemia secondary to blood loss (chronic); R11.0 Nausea
CPT/HCPCS: 12011; 36415; 73552; 80048; 80053; 80061; 85025; 86850; 86900; 86901; 93005; 96374; 97116; 97162; 97166; 97530; 97535; 99285; A9270; J1170; J7120; 83721

== ENCOUNTER 2018-12-25 12:06 | Inpatient (IN) | payer MEDICARE ==
[2018-12-25] MEDS ORDERED: ONDANSETRON ODT 4 MG TABLET PO PRN (17:28)
[2018-12-25] MEDS: ASPIRIN 325 MG TABLET PO SCH (18:17)
[2018-12-25] MEDS: KETOROLAC 10 MG TABLET PO SCH (18:17)
[2018-12-25] MEDS: ACETAMINOPHEN 325 MG TABLET PO PRN (18:17)
--- NOTE | 2018-12-25 19:23 | HISTORY & PHYSICAL EXAMINATION ---
History - Past Medical History Cardiovascular: reports: None Respiratory: reports: None Neuro: reports: None Endocrine/Autoimmune: reports: None GI: reports: GERD : reports: Nocturia, Frequency Psych: reports: None Musculoskeletal: reports: None Derm: reports: None MRSA Hx?: No - Past Surgical History General: reports: Other HEENT: reports: Rhinoplasty - Family & Social History Family History Comment/Other: His father had multiple cardiac problems that he cannot recall. 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 He does not smoke. Rarely drinks alcohol. - Substance History Use: Uses substance without health or social issues: NONE - POLST Patient has POLST: No Meds/Allgy - Home Medications Home Medications: Ambulatory Orders Medication Instructions Recorded Confirmed Acetaminophen [Tylenol] 650 mg PO Q4HR PRN #60 tablet 12/25/18 12/25/18 Aspirin [Cr] 325 mg PO BIDWM #60 tablet 12/25/18 12/25/18 Ketorolac [Toradol] 10 mg PO Q6H #60 tablet 12/25/18 12/25/18 Multivitamin W/Minerals [Theragran 1 tab PO DAILYWM #30 tablet 12/25/18 12/25/18 M] Ondansetron Odt [Zofran Odt] 4 mg PO Q8H PRN #10 12/25/18 12/25/18 - Allergies Allergies/Adverse Reactions: Allergies Allergy/AdvReac Type Severity Reaction Status Date / Time No Known Drug Allergies Allergy Verified 12/20/18 22:51
--- NOTE | 2018-12-25 19:56 | HISTORY & PHYSICAL EXAMINATION ---
DATE OF SERVICE: 12/25/2018 Physician: Reina Culver MD HISTORY OF PRESENT ILLNESS: This is a 63-year-old white male with a negative past medical history who [place] breaking his femur, crawled through the forest and eventually got help and was brought to the emergency room and found to have a complicated fracture. He was taken to surgery for open reduction internal fixation by Dr. Youssef and completed a postop course at [facility]. He required Toradol IV and Tylenol for pain control and has begun to progress in physical therapy rehab. He is being admitted to a longterm facility for further rehabilitation and management of his pain for the surgery of his broken hip. PAST MEDICAL HISTORY: Negative. MEDICATIONS: Before the admission to the hospital he was on no meds. Current meds are: 1. Tylenol 650 mg every 4 hours p.r.n. pain. 2. Aspirin 325 mg p.o. b.i.d. 3. Toradol 10 mg p.o. q.6 hours p.r.n. pain. 4. Multivitamin with iron daily. 5. Zofran p.r.n. ALLERGIES: None. FH: Non-contributory. SH: He drinks no alcohol except for a "fermented barley drink" occaisionally. He drinks aquart of milk a day. He does not smoke. No illicit drug use. REVIEW OF SYSTEMS: The patient had 500 mL estimated blood loss in the orthopedic surgery and his postop hemoglobin has dropped into the 8.3 range. He has been started on iron tablets for replacement, but in the last several days developed nausea from this and required Zofran p.r.n. His iron replacement was therefore changed to a multivitamin with minerals. A comprehensive review of systems was performed and the pertinent positives are listed, the rest are negative. PHYSICAL EXAMINATION GENERAL: Middle-aged white male. He is in no distress. Male pattern baldness. VITAL SIGNS: Blood pressure 136/67, heart rate 80 to 85 in sinus rhythm, afebrile, respiratory rate 11, room air saturation 98%. HEENT: Unremarkable. Moist oral mucosa. NECK: Without JVD or carotid bruits. CHEST: Clear. HEART: Normal heart sounds. ABDOMEN: Soft, positive bowel sounds, nontender. No rebound. No organomegaly. EXTREMITIES: No clubbing, cyanosis or edema. LABORATORY DATA: The last labs from his inpatient stay showed normal electrolytes, BUN 23, creatinine 1.0, AST has been greater than ALT the whole admission, 62/35 with the last set. His LDL was normal at 84 with a total cholesterol of 144. CBC showed the last white count to be 8.2, hemoglobin 8.1 with MCV 98 and normal platelet count of 209. IMPRESSION/DIAGNOSES 1. Traumatic fracture of his right femur, status post open reduction internal fixation and now requiring pain control and physical therapy. 2. Elevated liver function tests of unknown etiology, the patient denies any alcohol intake, has a normal LDL cholesterol, but no liver imaging was done. 3. Blood loss anemia. PLAN: Plan for daily or twice a day physical therapy and oral meds for pain management, with ultimate plan for discharge to independent living when he is stable. Continue with his aspirin prophylaxis for DVT, as ordered by the orthopedic surgeon. Continue with iron replacement using his oral multivitamin with iron, and prn antiemetics will be continued. TD: 12/25/2018 19:28 KAVITA
[2018-12-26] MEDS: KETOROLAC 10 MG TABLET PO SCH ×5 (01:25→23:57)
[2018-12-26] MEDS: MULTIVITAMIN W/MINERALS TABLET PO SCH (08:43)
[2018-12-26] MEDS: ASPIRIN 325 MG TABLET PO SCH ×2 (08:43→17:21)
[2018-12-26] MEDS: ACETAMINOPHEN 325 MG TABLET PO PRN (21:09)
[2018-12-27] MEDS: KETOROLAC 10 MG TABLET PO SCH ×2 (03:36→10:59)
[2018-12-27] MEDS: ASPIRIN 325 MG TABLET PO SCH ×2 (08:31→17:29)
[2018-12-27] MEDS: MULTIVITAMIN W/MINERALS TABLET PO SCH (08:31)
[2018-12-27] MEDS: ACETAMINOPHEN 325 MG TABLET PO PRN (17:29)
[2018-12-28] MEDS: ACETAMINOPHEN 325 MG TABLET PO PRN ×2 (03:20→16:15)
[2018-12-28] MEDS: ASPIRIN 325 MG TABLET PO SCH ×2 (08:30→16:15)
[2018-12-28] MEDS: MULTIVITAMIN W/MINERALS TABLET PO SCH (08:30)
[2018-12-29] MEDS: ACETAMINOPHEN 325 MG TABLET PO PRN (08:12)
[2018-12-29] MEDS: ASPIRIN 325 MG TABLET PO SCH ×2 (08:12→16:21)
[2018-12-29] MEDS: MULTIVITAMIN W/MINERALS TABLET PO SCH (08:12)
--- NOTE | 2018-12-29 14:08 | MISCELLANEOUS PROVIDER NOTE ---
Miscellaneous Provider Note - - Note: I spoke with nursing and PT today who are concerned patient's pain is hindering his rehab. He does not want narcotics. After discussion with Pharmacy, will start him on Tylenol 1gm every 8 hours and Naproxen 500mg BID. Will evaluate the patient tomorrow.
[2018-12-29] MEDS ORDERED: ACETAMINOPHEN 500 MG TABLET PO SCH (14:30)
[2018-12-29] MEDS: NAPROXEN 250 MG TABLET PO SCH (16:21)
[2018-12-30] MEDS: MULTIVITAMIN W/MINERALS TABLET PO SCH (08:46)
[2018-12-30] MEDS: ASPIRIN 325 MG TABLET PO SCH ×2 (08:46→18:00)
[2018-12-30] MEDS: POLYETHYLENE GLYCOL 3350 17 GM PACKET PO SCH (08:46)
[2018-12-30] MEDS: NAPROXEN 250 MG TABLET PO SCH ×2 (08:46→18:00)
--- NOTE | 2018-12-30 17:03 | PROVIDER PROGRESS NOTE ---
Subjective - Prog Note Date Prog Note Date: 12/30/18 - Subjective Subjective: He reports doing well overall. He has been able to ambulate with PT a little more each day. He reports his pain is well controlled with Naproxen. He does not feel that he needs Tylenol and he does not want narcotics. He is wondering when he can get his sutures removed just above his eyelid. He is also complaining of testicular pain. He believes when he initially fell, a branch may have hit his testicle as well. He reports pain upon palpation and dysuria. Also reports hematuria at times. Icing has provided relief as well as pain medication. He is also complaining of a rash on his back that began a few days ago. It is itchy and he believes it is similar to when he had pityriasis rosea in the past. He reports he has had recurrence of this rash in the past and it usually responds to steroids. Current Medications - Current Medications Current Medications: Active Medications Acetaminophen (Tylenol) 650 mg PO Q4HR PRN PRN Reason: Pain or Fever > 38C (100.4F) Aspirin (Cr) 325 mg PO BIDWM [facility] Last Admin: 12/30/18 08:46 Dose: 325 mg Multivitamins/Minerals (Theragran M) 1 tab PO DAILYWM [facility] Last Admin: 12/30/18 08:46 Dose: 1 tab Naproxen (Naprosyn) 500 mg PO BIDWM [facility] Last Admin: 12/30/18 08:46 Dose: 500 mg Ondansetron HCl (Zofran Odt) 4 mg PO Q8H PRN PRN Reason: Nausea / Vomiting Polyethylene Glycol (Miralax) 17 gm PO DAILY [facility] Last Admin: 12/30/18 08:46 Dose: Not Given Triamcinolone Acetonide (Triamcinolone Acetonide) 1 applic TOP BID [facility] Objective - Vital Signs/Intake & Output Reviewed Vital Signs: Yes Vital Signs: Vital Signs x48h Temp Pulse Resp BP Pulse Ox 12/30/18 11:38 36.7 C 95 16 139/82 H 98 Intake & Output: Intake & Output 12/27/18 12/28/18 12/29/18 12/30/18 23:59 23:59 23:59 23:59 Intake Total 600 840 610 480 Output Total 1000 0263 372 2899 Balance -400 -310 10 -520 - Objective General Appearance: positive: No acute distress, Alert Eyes Bilateral: positive: Normal inspection ENT: positive: ENT inspection nml Neck: positive: Nml inspection Respiratory: positive: No respiratory distress. negative: Wheezes, Rales, Rhonchi Cardiovascular: positive: Regular rate & rhythm, No murmur. negative: Tachycardia, Bradycardia Abdomen: positive: Non-tender, No distention. negative: Tenderness Rectal: positive: Other (There is an area of ecchymoses over both testses but mostly over the right testicle. It is tender to palpation. No discharge noted.) Skin: positive: Skin rash (He has midly erythematous pustules and papules located over his back. No rash present over the rest of his body. No vesicles noted.), Other (Sutures in place over the left eyebrow. The laceration appears well healed.). negative: No rash Extremities: positive: No pedal edema, Other (He does have tenderness over the right hip. Range of motion is somewhat limited secondary to pain.) Neurologic/Psychiatric: positive: Oriented x3, Other (He was able to ambulate with the walker in the room without difficulty.). negative: Disoriented to person, Disoriented to place, Disoriented to time, Weakness Assessment/Plan - Problem List (1) Right femoral fracture Impression: He is s/p repair and has been ambulating well with PT. Pain has been controlled with Naproxen. Will continue PT, Naproxen PO with Tylenol PRN. Qualifiers: Encounter type: subsequent encounter Femur location: shaft Fracture type: closed Fracture morphology: comminuted (2) Rash of back Impression: This may be pityriasis rosea and he reports a history of a similar rash. Does not appear to be vesicular and there is not concern for shingles. Will start Triamcinolone 0.1% BID for 1-2 weeks. (3) Testicular pain Impression: This may be related to the trauma he suffered when he initially fell. There is tenderness at the site and the area has ecchymoses. Will continue Naproxen for pain control. Will check urinalysis given dysuria and hematuria. Will also obtain testicular ultrasound w/ doppler. Will consider Urology referral if necessary. (4) Laceration of eyebrow, left Impression: This appears well healed and the sutures have been in place for nearly 10 days. Will remove the sutures.
--- NOTE | 2018-12-30 19:48 | Ultrasound Report ---
Reason: Testicular pain. Trauma. Ecchymoses. Procedure Date: 12/30/2018 Accession Number: [id number] / [id number] Procedure: US - Testicle w/Doppler CPT Code: FULL RESULT: EXAM: SCROTAL ULTRASOUND EXAM DATE: 12/30/2018 05:22 PM. CLINICAL HISTORY: Testicular pain. Trauma. Ecchymoses. COMPARISON: None. TECHNIQUE: Real-time scanning was performed with static images obtained. Color-flow images were utilized. FINDINGS: Right: Testis: 4.6 x 2.0 x 2.6 cm. Normal size and echotexture. No mass, calcification, or abnormal blood flow. Epididymis: 0.8 x 1.5 x 1.7 cm. Normal size and echotexture. No mass or abnormal blood flow. Hydrocele: Small amount. Varicocele: None. Left: Testis: 4.5 x 2.3 x 2.8 cm. Normal size and echotexture. No mass, calcification, or abnormal blood flow. Epididymis: 1.1 x 1.1 x 1.3 cm. Normal size and echotexture. No mass or abnormal blood flow. Hydrocele: Very small amount. Varicocele: Present. IMPRESSION: 1. Small hydroceles, right greater than left. 2. Left varicocele. RADIA
[2018-12-30] MEDS: TRIAMCINOLONE 0.1% OINT 15 GM TUBE TOP SCH ×2 (20:29→20:32)
[2018-12-30 21:14] LABS: BILIRUBIN,URINE NEGATIVE (NEGATIVE); GLUCOSE, URINE (UA) NEGATIVE (NEGATIVE); KETONES,URINE (UA) NEGATIVE (NEGATIVE); LEUKOCYTE ESTERASE, URINE NEGATIVE (NEGATIVE); NITRITE,URINE NEGATIVE (NEGATIVE); OCCULT BLOOD,URINE NEGATIVE (NEGATIVE); PROTEIN,URINE NEGATIVE (NEGATIVE); UROBILINOGEN,URINE 0.2 (NORMAL) E.U./dL (NORMAL)
[2018-12-30 21:17] LABS: CLARITY,URINE CLEAR (CLEAR)
[2018-12-30 21:20] LABS: BACTERIA,URINE Rare /HPF (None Seen); CASTS, URINE 6-10 Hyaline Casts /LPF; MUCUS,URINE Few Strands; RBC,URINE 0-5 /HPF (0-5); SQUAMOUS EPITHELIAL CELL,UR RARE Squamous (<= Few)
[2018-12-31] MEDS: POLYETHYLENE GLYCOL 3350 17 GM PACKET PO SCH (08:10)
[2018-12-31] MEDS: METHYLCELLULOSE 500 MG PO PRN (08:11)
[2018-12-31] MEDS: TRIAMCINOLONE 0.1% OINT 15 GM TUBE TOP SCH (08:11)
[2018-12-31] MEDS: NAPROXEN 250 MG TABLET PO SCH ×2 (08:20→17:33)
[2018-12-31] MEDS: ASPIRIN 325 MG TABLET PO SCH ×2 (08:20→17:33)
[2018-12-31] MEDS: MULTIVITAMIN W/MINERALS TABLET PO SCH (08:20)
[2018-12-31] MEDS: CLOBETASOL 0.05% OINT 15 GM TUBE TOP SCH ×2 (11:31→18:40)
[2018-12-31] MEDS: ACETAMINOPHEN 325 MG TABLET PO PRN ×2 (14:43→20:52)
[2019-01-01] MEDS: NAPROXEN 250 MG TABLET PO SCH ×2 (08:03→17:09)
[2019-01-01] MEDS: METHYLCELLULOSE 500 MG PO PRN (08:03)
[2019-01-01] MEDS: POLYETHYLENE GLYCOL 3350 17 GM PACKET PO SCH (08:04)
[2019-01-01] MEDS: ASPIRIN 325 MG TABLET PO SCH ×2 (08:04→17:10)
[2019-01-01] MEDS: MULTIVITAMIN W/MINERALS TABLET PO SCH (08:04)
[2019-01-01] MEDS: CLOBETASOL 0.05% OINT 15 GM TUBE TOP SCH ×2 (10:47→20:28)
[2019-01-01] MEDS: ACETAMINOPHEN 325 MG TABLET PO PRN ×2 (15:00→20:25)
[2019-01-02] MEDS: MULTIVITAMIN W/MINERALS TABLET PO SCH (08:07)
[2019-01-02] MEDS: ASPIRIN 325 MG TABLET PO SCH ×2 (08:07→17:18)
[2019-01-02] MEDS: CLOBETASOL 0.05% OINT 15 GM TUBE TOP SCH ×2 (08:07→21:12)
[2019-01-02] MEDS: NAPROXEN 250 MG TABLET PO SCH ×2 (08:07→17:18)
[2019-01-02] MEDS: POLYETHYLENE GLYCOL 3350 17 GM PACKET PO SCH (08:07)
[2019-01-02] MEDS: METHYLCELLULOSE 500 MG PO PRN (08:08)
--- NOTE | 2019-01-02 12:58 | XRAY Report ---
Reason: Status post ORIF. Procedure Date: 01/02/2019 Accession Number: [id number] / [id number] Procedure: XR - Femur 2V RT CPT Code: FULL RESULT: EXAM: RIGHT FEMUR RADIOGRAPHY EXAM DATE: 01/02/2019 11:27 AM. CLINICAL HISTORY: Right leg pain. COMPARISON: FEMUR 2V RT 12/21/2018 12:09 AM. TECHNIQUE: 2 views. FINDINGS: Bones: Interval ORIF changes of the right intertrochanteric region is seen lesser trochanteric fracture fragment remains displaced. Other fracture fragments are in near anatomic alignment. Joints: The visualized hip and knee joints are normal. No effusions. Soft Tissues: Normal. No soft tissue swelling. IMPRESSION: Status post ORIF of the proximal right femur with dominant fracture fragments in near anatomic alignment. RADIA
[2019-01-02] MEDS: ACETAMINOPHEN 325 MG TABLET PO PRN (22:11)
[2019-01-03] MEDS: ASPIRIN 325 MG TABLET PO SCH ×2 (08:43→16:50)
[2019-01-03] MEDS: CLOBETASOL 0.05% OINT 15 GM TUBE TOP SCH ×2 (08:43→20:34)
[2019-01-03] MEDS: POLYETHYLENE GLYCOL 3350 17 GM PACKET PO SCH (08:43)
[2019-01-03] MEDS: METHYLCELLULOSE 500 MG PO PRN (08:43)
[2019-01-03] MEDS: NAPROXEN 250 MG TABLET PO SCH ×2 (08:43→16:50)
[2019-01-03] MEDS: MULTIVITAMIN W/MINERALS TABLET PO SCH (08:43)
--- NOTE | 2019-01-03 12:31 | PROVIDER PROGRESS NOTE ---
Subjective - Prog Note Date Prog Note Date: 01/03/19 Prog Note Time: 12:29 - Subjective Pt reports feeling: Improved (Less pain.) Objective - Vital Signs/Intake & Output Vital Signs: Vital Signs x48h Temp Pulse Resp BP Pulse Ox 01/03/19 07:19 36.5 C 74 19 148/80 H 97 Intake & Output: Intake & Output 12/31/18 01/01/19 01/02/19 01/03/19 23:59 23:59 23:59 23:59 Intake Total 1270 1950 2190 240 Output Total 500 879 168 9299 Balance 770 1275 1315 -1910 - Diagnostic Imaging Diagnostic Imaging Comments: XR shows no interval change in frature alignment. jameel callous seen. Hardware ok - Other Results/Comments Other Results/Comments: EXAM: Wounds are all healing nicely. Minimal hip tenderness. No pain with hip rotation. In PT for walker ambulation - TTWB on right Assessment/Plan - Problem List (1) Right femoral fracture Impression: Satis post op PLAN: Stapl;es out today. Continue PT - walker ambulate - TTWB on right. Qualifiers: Encounter type: subsequent encounter Femur location: shaft Fracture type: closed Fracture morphology: comminuted
[2019-01-04] MEDS: ASPIRIN 325 MG TABLET PO SCH ×2 (08:37→16:32)
[2019-01-04] MEDS: NAPROXEN 250 MG TABLET PO SCH ×2 (08:37→16:32)
[2019-01-04] MEDS: MULTIVITAMIN W/MINERALS TABLET PO SCH (08:37)
[2019-01-04] MEDS: METHYLCELLULOSE 500 MG PO PRN (08:37)
[2019-01-04] MEDS: POLYETHYLENE GLYCOL 3350 17 GM PACKET PO SCH (08:38)
[2019-01-04] MEDS: CLOBETASOL 0.05% OINT 15 GM TUBE TOP SCH ×2 (08:38→22:23)
[2019-01-05] MEDS: POLYETHYLENE GLYCOL 3350 17 GM PACKET PO SCH (07:45)
[2019-01-05] MEDS: CLOBETASOL 0.05% OINT 15 GM TUBE TOP SCH ×2 (08:54→20:57)
[2019-01-05] MEDS: ASPIRIN 325 MG TABLET PO SCH ×2 (08:57→17:58)
[2019-01-05] MEDS: MULTIVITAMIN W/MINERALS TABLET PO SCH (08:57)
[2019-01-05] MEDS: NAPROXEN 250 MG TABLET PO SCH ×2 (08:57→17:58)
[2019-01-05] MEDS: METHYLCELLULOSE 500 MG PO PRN (13:00)
[2019-01-06] MEDS: MULTIVITAMIN W/MINERALS TABLET PO SCH (08:27)
[2019-01-06] MEDS: CLOBETASOL 0.05% OINT 15 GM TUBE TOP SCH ×2 (08:27→10:30)
[2019-01-06] MEDS: ASPIRIN 325 MG TABLET PO SCH ×2 (08:27→17:18)
[2019-01-06] MEDS: POLYETHYLENE GLYCOL 3350 17 GM PACKET PO SCH (08:27)
[2019-01-06] MEDS: NAPROXEN 250 MG TABLET PO SCH ×2 (08:27→17:18)
--- NOTE | 2019-01-06 08:58 | Discharge Plan ---
Discharge Plan Problem Reviewed?: Yes Disposition: Home, Self Care Condition: Stable Prescriptions: Naproxen [Naprosyn] 500 mg PO BIDWM #30 tablet Diet: Regular Activity Restrictions: Activity as Tolerated Shower Restrictions: No Assistance Devices: Crutches, Other (Use the devices provided for you, and as instructed by Physical Therapy.) Weight Bearing: Toe Touch Health Concerns: Admitted to SNF after a hip fracture, that was repaired, for further rehab. You have met all the rehab goals by doing physical therapy. Plan of Treatment: You may continue to use Tylenol or the prescription Naprosyn for pain control. Continue with the instructions from the market risk specialist and the Physical Therapist. Care Goals: Return to independent function. Assessment: The patient is agreeable. Additional Instructions or Follow Up instructions: Call your PCP or the [facility] , for any questions. See the Orthopedist for a follow-up appoint in 5-7 days, or as needed. No Smoking: If you smoke, Please STOP! Call for help.
[2019-01-06 10:28] VITALS: BP 108/73
[2019-01-06] MEDS: METHYLCELLULOSE 500 MG PO PRN (12:55)
--- NOTE | 2019-01-06 18:30 | DISCHARGE SUMMARY ---
"Discharge Summary Admit Date: 12/25/18 Discharge Date: 01/06/19 Discharging Provider: Dr Reina Culver Primary Care Provider: None Code Status: Attempt Resuscitation Condition at Discharge: Stable Discharge Disposition: 01 Home, Self Care - DIAGNOSES Admission Diagnoses: 1) Fractured R femur, S/P orthopedic surgery 2) Elevated LFTs 3) Blood loss anemia Discharge Diagnoses with Status of Each Condition: see below - HPI History of Present Illness: This is a 63-year-old white male with a negative past medical history who suffered [place] and had a complex fracture of his right hip, was hospitalized at [facility] and required orthopedic surgery. He was admitted to [facility] for further Physical Therapy and Occupational Therapy rehab on 12/25/2018. - CONSULTS | PROCEDURES Consultations: Dr Dillon, Orthopedics - HOSPITAL COURSE Hospital Course: (1) Right femoral fracture He is s/p repair of a comminuted fracture of the shaft and was ambulating well with PT, and was seen by OT. Pain was controlled with Naproxen and Tylenol, since narcotics make him nauseated. He was seen once by the Orthopedist, who felt the wound was healing well. He was discharged with crutches and other equipment and is to see Orthopedics as an outpatient. 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 It did not appear to be vesicular and there was no concern for shingles. He was treated with Triamcinolone 0.1% BID for 1-2 weeks. (3) Testicular pain This was likely related to the trauma he suffered when he [place]. There was tenderness at the site and the area hds ecchymoses. Naproxen used for pain control. A urinalysis was unremarkable. He had a testicular ultrasound w/ doppler which showed (4) Laceration of eyebrow, left This also occurred with the initial fall in the [place]. The site appeared well healed and the sutures were in place for nearly 10 days and were removed. - ALLERGIES Allergies/Adverse Reactions: Allergies Allergy/AdvReac Type Severity Reaction Status Date / Time mushroom Allergy Respiratory Verified 12/26/18 09:06 - MEDICATIONS Home Medications: Ambulatory Orders Medication Instructions Recorded Confirmed Acetaminophen [Tylenol] 650 mg PO Q4HR PRN #60 tablet 12/25/18 12/25/18 Multivitamin W/Minerals [Theragran 1 tab PO DAILYWM #30 tablet 12/25/18 12/25/18 M] Naproxen [Naprosyn] 500 mg PO BIDWM #30 tablet 01/06/19 - PHYSICAL EXAM AT DISCHARGE General Appearance: positive: No acute distress, Alert Eyes Bilateral: positive: Normal inspection ENT: positive: No signs of dehydration Neck: positive: Nml inspection Respiratory: positive: No respiratory distress Cardiovascular: positive: Regular rate & rhythm Abdomen: positive: No distention Extremities: positive: No pedal edema Neurologic/Psychiatric: positive: Oriented x3 - FOLLOW UP Follow Up: See Orthopedics in 1-2 weeks - TIME SPENT Time Spent in Discharge (Minutes): 45"
== END 2019-01-06 19:10 | disposition home or self-care (01) | DRG 561 ==
LOC: MS3 16:53
PROVIDERS: ADMIT Internal Medicine; ATTEND Internal Medicine
DX: S72.121D Displaced fracture of lesser trochanter of right femur, subsequent encounter for closed fracture with routine healing (principal); D50.0 Iron deficiency anemia secondary to blood loss (chronic); L42 Pityriasis rosea; S30.22XD Contusion of scrotum and testes, subsequent encounter; S01.112D Laceration without foreign body of left eyelid and periocular area, subsequent encounter; R30.0 Dysuria; R31.0 Gross hematuria; N43.3 Hydrocele, unspecified; I86.1 Scrotal varices; Z79.899 Other long term (current) drug therapy; Z79.82 Long term (current) use of aspirin
CPT/HCPCS: 76870; 81001; 93975

== ENCOUNTER 2019-01-11 18:10 | Emergency (ER) | payer MEDICARE ==
--- NOTE | 2019-01-11 20:20 | ED Physician Documentation ---
History of Present Illness - Stated complaint Stated Complaint: RT FOOT SWOLLEN, TINGLY - POST SURGERY - Chief complaint Chief Complaint: Ext Problem - History obtained from History obtained from: Patient - Additonal information Additional information: This is a 63-year-old man who presents with his friend complaints that he suffered an injury earlier this month and had to have a right femur kiko placed. He had the surgery on December 21 and he was discharged this past Friday. At the time of discharge she had some swelling but it was has been increasing since he was discharged. He feels his needles sensation all through his foot. He is taking aspirin as a blood thinner and does not know whether or not he was receiving Lovenox. He is on crutches and essentially toe drag weightbearing on the right foot. He has not had any shortness of breath. He does have some chest pain across anterior chest that he thinks is from using the walker and crutches. He has not been running a fever. He had called to make an appointment for follow-up with his doctor and its scheduled for January 18. He is not yet been scheduled for outpatient physical therapy. Review of Systems Constitutional: denies: Fever Cardiac: reports: Other (Right leg swelling). denies: Chest pain / pressure, Palpitations Respiratory: denies: Dyspnea Musculoskeletal: reports: Extremity swelling, Other (Recent right femur rodding) Neurologic: denies: Syncope PD PAST MEDICAL HISTORY - Past Medical History Past Medical History: Yes Cardiovascular: None Respiratory: None Neuro: None Endocrine/Autoimmune: None GI: GERD : Nocturia, Frequency HEENT: None Psych: None Musculoskeletal: None Derm: None - Past Surgical History Past Surgical History: No General: Other Ortho: Other HEENT: Rhinoplasty - Present Medications Home Medications: Ambulatory Orders Medication Instructions Recorded Confirmed Acetaminophen [Tylenol] 650 mg PO Q4HR PRN #60 tablet 12/25/18 12/25/18 Multivitamin W/Minerals [Theragran 1 tab PO DAILYWM #30 tablet 12/25/18 12/25/18 M] Naproxen [Naprosyn] 500 mg PO BIDWM #30 tablet 01/06/19 - Allergies Allergies/Adverse Reactions: Allergies Allergy/AdvReac Type Severity Reaction Status Date / Time mushroom Allergy Respiratory Verified 12/26/18 09:06 - Social History Does the pt smoke?: No Smoking Status: Never smoker Does the pt drink ETOH?: No Does the pt have substance abuse?: No - Immunizations Immunizations are current?: Yes - POLST Patient has POLST: No PD ED PE NORMAL - Vitals Vital signs reviewed: Yes - General General: Alert and oriented X 3, No acute distress, Well developed/nourished - HEENT HEENT: Other (There is a healed scar on the left forehead was also associated with this injury) - Cardiac Cardiac: RRR, Strong equal pulses, Other (Faint 1/6 systolic murmur heard only with him leaning back on the exam table at the left upper sternal border) - Respiratory Respiratory: No respiratory distress, Clear bilaterally - Derm Derm: Normal color, No rash - Extremities Extremities: Other (The right leg is swollen from about mid thigh down into the foot. He is able to wiggle his toes. There is no erythema, wounds or warmth noted anywhere through the leg.) - Neuro Neuro: Alert and oriented X 3, No motor deficit, No sensory deficit, Normal speech - Psych Psych: Normal mood, Normal affect Results - Vitals Vitals: Vital Signs - 24 hr 01/11/19 23:27 Heart Rate 79 Respiratory 18 Rate Blood Pressure 165/87 H O2 Saturation 99 Oxygen O2 Source Room air - Rads (name of study) duples ultrasound Radiology: See rad report (neg DVT) Departure - Departure Disposition: 01 Home, Self Care Clinical Impression: Edema Qualifiers: Edema type: unspecified Qualified Code(s): R60.9 - Edema, unspecified Condition: Good Instructions: ED Stockings Flavia Follow-Up: Denilson Youssef MD [Provider Admit Priv/Credential] - aHkan Knight MD [Primary Care Provider] - Comments: Wear the FLAVIA hose to reduce the edema. Try to sit with the leg more elevated so that it does not continue to swell. I would flex and point the toes and foot to help pump the muscles to work some of the edema out. Contact your doctor about physical therapy which will also increase the mobility and allow more fluid resorption. Discharge Date/Time: 01/11/19 23:37
--- NOTE | 2019-01-11 22:17 | Ultrasound Report ---
Reason: r leg swelling s/p femur kiko Procedure Date: 01/11/2019 Accession Number: [id number] / [id number] Procedure: US - Duplex Ext Veins Right CPT Code: FULL RESULT: EXAM: RIGHT LOWER EXTREMITY VENOUS ULTRASOUND. EXAM DATE: 01/11/2019 10:03 PM. CLINICAL HISTORY: Right leg swelling, status post femur kiko. COMPARISON: None. TECHNIQUE: Real-time sonographic vascular imaging was performed by the toys inspector through the lower extremity utilizing both color-flow and Doppler spectral analysis. Multiple teleservices representative static images were saved for review. FINDINGS: Common Femoral Vein (CFV): Normal. CFV-GSV Junction: Normal. Profunda Femoral Vein (PFV): Normal. Femoral Vein (FV) Prox: Normal. Femoral Vein (FV) Mid: Normal. Femoral Vein (FV) Dist: Normal. Popliteal Vein: Normal. Posterior Tibial Veins: Normal. Peroneal Veins: Normal. Contralateral Side CFV: Normal. Other: Soft tissue edema around the knee noted. A deeper anterolateral fluid collection may represent a knee joint effusion. IMPRESSION: No evidence for deep venous thrombosis. [facility]
[2019-01-11 23:28] VITALS: BP 165/87
== END 2019-01-11 23:37 | disposition home or self-care (01) ==
LOC: ED 18:10
DX: R60.0 Localized edema (principal); Z98.890 Other specified postprocedural states; R01.1 Cardiac murmur, unspecified; Z79.82 Long term (current) use of aspirin
CPT/HCPCS: 99284

== ENCOUNTER 2020-03-06 12:20 | Outpatient (CLI) | payer SELFPAY | END 2020-03-06 12:21 | disposition home or self-care (01) | LOC: LAB 12:20 | DX: Z01.89 Encounter for other specified special examinations (principal) | CPT/HCPCS: 36415 ==

== ENCOUNTER 2020-06-19 07:00 | Outpatient (CLI) | payer MEDICARE | END 2020-06-19 23:59 | disposition home or self-care (01) | LOC: COV 07:00 | PROVIDERS: ATTEND Surgery | DX: Z01.812 Encounter for preprocedural laboratory examination (principal); K40.20 Bilateral inguinal hernia, without obstruction or gangrene, not specified as recurrent; Z20.822 Contact with and (suspected) exposure to COVID-19 ==